=== PATIENT | female | born 1970 | race Two or more races ===

== ENCOUNTER → 2020-01-17 13:41 | Outpatient (BNVA) | payer MEDICAID, SELFPAY | PROVIDERS: PCP Nurse Practitioner Family; Referring Provider Nurse Practitioner Family; Visit Provider Internal Medicine Cardiovascular Disease | DX: I48.0 Paroxysmal atrial fibrillation (principal); I10 Essential (primary) hypertension; G47.33 Obstructive sleep apnea (adult) (pediatric); Z79.899 Other long term (current) drug therapy; Z99.89 Dependence on other enabling machines and devices | CPT/HCPCS: 93005; 99212 ==

== ENCOUNTER → 2020-07-09 13:16 | Outpatient (BNVA) | payer MEDICAID, SELFPAY | PROVIDERS: PCP Nurse Practitioner Family; Referring Provider Nurse Practitioner Family; Visit Provider Internal Medicine Cardiovascular Disease | DX: I48.0 Paroxysmal atrial fibrillation (principal); I10 Essential (primary) hypertension | CPT/HCPCS: 93005; 99212 ==

== ENCOUNTER 2020-08-21 13:07 | Emergency (ER) | payer MEDICAID, SELFPAY ==
--- NOTE | ~2020-08-21 | XR_ITS ---
EXAMINATION: XR CHEST CLINICAL INFORMATION: Chest pressure COMPARISON: Chest radiographs 11/22/2019, 07/22/2019 TECHNIQUE: Frontal view of the chest was obtained. FINDINGS: The lungs are clear. There is no hyperinflation, pneumothorax, pleural reaction, or effusion. No airspace consolidation or groundglass opacity. The heart is normal in size. The hilar and mediastinal contours and visualized bony structures are unremarkable. XR/XR chest 1V IMPRESSION: Unremarkable examination.
[2020-08-21 13:20] VITALS: BP 144/78; PULSE 87; RESP 17; TEMP 36.7; O2SAT 97; BMI 36.6
--- NOTE | 2020-08-21 13:25 | ECG_ITS ---
Test Reason : CP Blood Pressure : / mmHG Vent. Rate : 071 BPM Atrial Rate : 071 BPM P-R Int : 170 ms QRS Dur : 088 ms QT Int : 394 ms P-R-T Axes : 049 014 018 degrees QTc Int : 428 ms Normal sinus rhythm Normal ECG When compared with ECG of 22-NOV-2019 16:32, No significant change was found Referred By: Generic ED Physician Electronically Signed By:Juvencio Peck
[2020-08-21 15:03] LABS: MANUAL DIFF FLAG NO
[2020-08-21 15:06] LABS: Basophils Percent Auto 0.2 % (0-2); Eosinophils Absolute Auto 0.6 X10*3/uL (0.0-0.4); Hematocrit 36.9 % (37-47); Hemoglobin 12.3 g/dl (12.0-16.0); Imm Gran Abs Auto 0.03 X10*3/uL (0.00-0.03); Imm Gran Pct Auto 0.3 % (0.0-0.4); Lymphocytes Absolute Auto 1.5 X10*3/uL (1.2-4.9); Lymphocytes Percent Auto 15.6 % (20-40); Mean Corpuscular HGB Conc 33.3 g/dl (31.0-35.0); Mean Corpuscular Hemoglobin 31.1 pg (27.0-33.0); Mean Corpuscular Volume 93.4 fL (80-98); Mean Platelet Volume 9.1 fL (9.4-12.3); Monocytes Absolute Auto 0.5 X10*3/uL (0.1-1.2); Monocytes Percent Auto 5.1 % (2-11); Neutrophils Absolute Auto 6.8 X10*3/uL (2.0-8.3); Neutrophils Percent Auto 72.8 % (45-73); Platelet Count 209 X10*3/uL (160-400); Red Blood Count 3.95 X10*6/uL (4.20-5.50); Red Cell Distribution Width 12.3 % (11.0-16.0); White Blood Count 9.4 X10*3/uL (4.8-10.8)
[2020-08-21 15:28] LABS: Anion Gap 12 (12-20); Blood Urea Nitrogen 12 mg/dL (9-16); Calcium 9.8 mg/dL (8.4-10.2); Carbon Dioxide 29 mmol/L (22-29); Chloride 107 mmol/L (96-108); Creatinine Clr Calc Pharmacy 101.8; Estimated Glomerular Filt Rate > 60; Glucose Random 129 mg/dL (60-115); Potassium 3.6 mmol/L (3.3-5.1); Sodium 144 mmol/L (135-145)
[2020-08-21 15:33] LABS: Troponin-I High Sensitivity < 3.5 ng/L (<3.5-17.0)
[2020-08-21 16:59] VITALS: BP 148/85; PULSE 74; RESP 16; TEMP 36.7; O2SAT 99
--- NOTE | 2020-08-21 17:55 | ED_ITS ---
HPI - Chest Pain General Chief Complaint: Chest Pain Stated Complaint: severe chest pain Time Seen by Provider: 08/21/20 17:21 Source: patient and translator and interpreter Mode of arrival: ambulatory Limitations: language barrier History of Present Illness HPI narrative: 50 yo female with past medical history of afib, HTN, FAMILAI, ICH so not on xarelto currently here with complaints of Chest tightness, weakness, lightheaded at times, sensation of need to urinate and move her bowels, tingling in the arms/legs for years but today tells me that the symptoms have continued and she became frustrated and so she decided to come to the emergency department. She does not feel like they are worse. She denies any recent changes in her medications. She denies any shortness of breath, cough, leg swelling or pain, fevers, chills. Related Data Home Medications Medication Instructions Recorded Confirmed labetalol 100 mg tablet 100 mg PO BID 01/17/20 07/09/20 simvastatin 20 mg tablet 20 mg PO BEDTIME 01/17/20 07/09/20 sumatriptan succinate 25 mg tablet 25 mg PO Q2-4H PRN 01/17/20 07/09/20 cetirizine 10 mg tablet 10 mg PO DAILY PRN 07/09/20 07/09/20 cholecalciferol (vitamin D3) 25 25 mcg PO DAILY 07/09/20 07/09/20 mcg (1,000 unit) capsule hydrochlorothiazide 12.5 mg tablet 12.5 mg PO DAILY 07/09/20 07/09/20 labetalol 100 mg tablet 100 mg PO BID 07/09/20 07/09/20 Previous Rx's Medication Instructions Recorded flecainide 50 mg tablet 50 mg PO Q12H #60 tab 07/15/20 Allergies Allergy/AdvReac Type Severity Reaction Status Date / Time lisinopril [LISINOPRIL] Allergy Intermediate Palpitation Unverified 08/21/20 13:19 s NSAIDS Allergy Intermediate Hypertensio Uncoded 08/21/20 13:19 n Review of Systems Review of Systems: Yes all other systems are reviewed and are negative Constitutional: Constitutional: Reports no additional constitutional complaints, Denies body ache(s), Denies chills, Denies fever(s), Denies headache(s) and Reports weakness Eyes: Eyes: Reports no additional eye complaints and Denies change in vision ENT: Reports system reviewed and no additional complaints, except as documented, Denies dizziness, Denies headache(s), Denies nasal congestion, Denies nasal discharge and Denies neck pain Cardiovascular: Cardiovascular: Reports no additional cardiovascular complaints, Reports chest pain, Denies leg edema, Reports lightheadedness and Denies dyspnea Respiratory: Respiratory: Reports no additional respiratory complaints, Denies cough and Denies dyspnea Gastrointestinal: Gastrointestinal: Reports no additional gastrointestinal complaints, Denies abdominal pain, Denies diarrhea, Denies nausea and Denies vomiting Genitourinary: Genitourinary: Reports no additional female genitourinary complaints and Denies urinary incontinence Musculoskeletal: Musculoskeletal: Reports no additional musculoskeletal com plaints, Denies back pain, Denies arthralgias, Denies joint swelling, Denies neck pain, Denies numbness and Denies tingling Integumentary/Breasts: Skin/Breast: Reports system reviewed and no additional complaints, except as docu and Denies rash Neurologic: Reports system reviewed and no additional complaints, except as documented, Denies Abnormal speech present, Denies dizziness, Denies headache(s), Denies numbness, Denies tingling and Reports weakness PMFSH Past Medical History Attestation statement: The following information was validated with the patient. Source: old records reviewed and nursing notes reviewed Medical History HTN (hypertension) Intracranial hemorrhage FAMILIA (obstructive sleep apnea) Paroxysmal atrial fibrillation Surgical History H/O sinus surgery Family History Family History Father No problems noted. Mother HTN (hypertension) Social History Social History Advance Directives: Yes Advance Directives Information Provided: Yes Advance Directives on File: No Patient : No Physical Exam Vital Signs: Vital Signs: Last Vital Signs Temp 98.1 F 08/21/20 16:59 Pulse 74 08/21/20 16:59 Resp 16 08/21/20 16:59 BP 148/85 H 08/21/20 16:59 Pulse Ox 99 08/21/20 16:59 Body Mass Index 36.6 Const: General: cooperative, healthy appearing, comfortable and no acute distress Orientation/consciousness: patient oriented x3 Limitations: no limitations HENMT: Head: Yes normal to inspection Ears: hearing grossly normal bilaterally General nose exam: Normal external nose present Face and sinus: Yes normal facial exam Mouth: Normal oral and palatal mucosa present Throat: Yes posterior oropharynx normal Eyes: General: appearance normal, both eyes and all related structures Pupils: Equal, round and reactive pupils present Neck: Neck: Yes normal visual inspection Chest: Chest palpation & inspection: normal inspection of the chest Resp: Effort & Inspection: normal respiratory effort Auscultation: clear to auscultation bilaterally Cardio: Rate: regular rate Rhythm: regular rhythm Peripheral pulses: Per ipheral pulses 2+ throughout GI: Inspection: Yes normal to inspection Palpation (GI): Soft to palpation and nontender Auscultation: normal bowel sounds Back/Spine/Pelvis: Thoracic/Lumbar Spine: thoracic and lumbar spine normal to inspection Skin: General skin exam: no rashes or lesions noted Neuro: General: patient oriented x3, no focal motor deficits and normal sensation to monofilament Cranial nerves: Yes Equal, round and reactive pupils present Cognition (Neuro): normal cognition Speech: No Abnormal speech present Gait exam (Neuro): Normal gait present Motor exam (neuro): 5/5 motor strength present throughout Extrem: General: Yes normal to inspection, Yes no pedal edema and Yes no calf tenderness Course Course Course Narrative: 50-year-old female here with a constellation of symptoms which she tells me have been going on for years but are quite persistent and she became frustrated due to the symptoms today and which prompted her emergency room visit. She does not feel like the symptoms are worse. She is hemodynamically stable. Her exam is benign. Her x-ray, EKG and labs are all unremarkable. ?anxiety. She tells me she does have a diagnosis but currently does not taking medication because she feels like she is overwhelmed with the amount of medication she takes currently. She does not have a therapist or psychiatrist. I asked her if she was interested in this and she told me at this point she is not and will follow up with her primary care doctor. Reviewed this with the patient reviewed worrisome signs and symptoms when to return to the emergency department. Comfortable discharge home. MDM - Chest Pain MDM Narrative Medical decision making narrative: Less likely ACS with unremarkable EKG, troponin with symptoms for years Medical Records Data Attestation: I reviewed the patient's medical records. Lab Data Attestation: I reviewed the patient's lab results. Result diagrams: 08/21/20 14:57 08/21/20 14:57 Labs: Lab Results 08/21/20 08/21/20 08/21/20 Range/Units 14:57 14:57 14:57 WBC 9.4 (4.8-10.8) X10*3/uL RBC 3.95 L (4.20-5.50) X10*6/uL Hgb 12.3 (12.0-16.0) g/dl Hct 36.9 L (37-47) % MCV 93.4 (80-98) fL MCH 31.1 (27.0-33.0) pg MCHC 33.3 (31.0-35.0) g/dl RDW 12.3 (11.0-16.0) % Plt Count 209 (160-400) X10*3/uL MPV 9.1 L (9.4-12.3) fL Immature Gran % (Auto) 0.3 (0.0-0.4) % Neut % (Auto) 72.8 (45-73) % Lymph % (Auto) 15.6 L (20-40) % Cascade % (Auto) 5.1 (2-11) % Eos % (Auto) 6.0 H (0-4) % Baso % (Auto) 0.2 (0-2) % Lymph # (Auto) 1.5 (1.2-4.9) X10*3/uL [place] # (Auto) 0.5 (0.1-1.2) X10*3/uL Eos # (Auto) 0.6 H (0.0-0.4) X10*3/uL Baso # (Auto) 0.0 (0.0-0.2) X10*3/uL Abs Immat Gran (auto) 0.03 (0.00-0.03) X10*3/uL Absolute Neuts (auto) 6.8 (2.0-8.3) X10*3/uL Absolute Nucleated RBC 0.000 (0.0-0.012) X10*3/uL Nucleated RBC % (auto) 0.0 (0.0-0.2) /100WBC Sodium 144 (135-145) mmol/L Potassium 3.6 (3.3-5.1) mmol/L Chloride 107 (96-108) mmol/L Carbon Dioxide 29 (22-29) mmol/L Anion Gap 12 (12-20) BUN 12 (9-16) mg/dL Creatinine 0.79 (0.5-1.4) mg/dL Estim Creat Clear Calc 101.8 Estimated GFR > 60 Random Glucose 129 H (60-115) mg/dL Calcium 9.8 (8.4-10.2) mg/dL Troponin I High Sens < 3.5 (<3.5-17.0) ng/L Imaging Data Chest x-ray: Attestation: I personally reviewed and interpreted this imaging study as follows: Radiologist's impression: [address] [id number] ReportSigned Patient: Elana CurryMR#: [id number]: 1970Acct:[id number]/Sex: 50 / FADM Date: 08/21/20Loc: HO.EDAttending Dr: Ordering Physician: Generic ED Physician Date of Service: 08/21/20 Procedure(s): XR chest 1V Accession Number(s): [id number] cc: Generic ED Physician~ EXAMINATION: XR CHEST CLINICAL INFORMATION: Chest pressure COMPARISON: Chest radiographs 11/22/2019, 07/22/2019 TECHNIQUE: Frontal view of the chest was obtained. FINDINGS: The lungs are clear. There is no hyperinflation, pneumothorax, pleural reaction, or effusion. No airspace consolidation or groundglass opacity. The heart is normal in size. The hilar and mediastinal contours and visualized bony structures are unremarkable. XR/XR chest 1V IMPRESSION: Unremarkable examination. ECG Data ECG #1: Attestation: I personally reviewed and interpreted this ECG as follows: ECG interpretation date: 08/21/20 ECG interpretation time: 13:25 Interpretation: Normal sinus rhythm Normal ECG When compared with ECG of 22-NOV-2019 16:32, No significant change was found Discharge Plan Discharge Clinical Impression: Atypical chest pain, Anxiety Patient Disposition: Home, Self-Care Instructions: Anxiety (ED), Chest Wall Pain (ED) Additional Instructions: Your EKG, blood work and chest x-ray all looked normal Follow-up with your manager web and PCP Prescriptions: No Action flecainide 50 mg tablet 50 mg PO Q12H Qty: 60 RF: 4 labetalol 100 mg tablet 100 mg PO BID RF: 0 cetirizine 10 mg tablet 10 mg PO DAILY PRNRF: 0 hydrochlorothiazide 12.5 mg tablet 12.5 mg PO DAILY RF: 0 cholecalciferol (vitamin D3) 25 mcg (1,000 unit) capsule 25 mcg PO DAILY RF: 0 labetalol 100 mg tablet 100 mg PO BID RF: 0 simvastatin 20 mg tablet 20 mg PO BEDTIME RF: 0 sumatriptan succinate 25 mg tablet 25 mg PO Q2-4H PRNRF: 0 Referrals: Charly Law NP [Primary Care Provider] - 2 days Interventions: ED Discharge Assessment Last Done: 08/21/20 17:59 Discharge Date/Time: 08/21/20 18:00
== END 2020-08-21 18:00 | disposition home or self-care (01) ==
PROVIDERS: Emergency Provider Emergency Medicine; PCP Nurse Practitioner Family
DX: R07.89 Other chest pain (principal); F41.9 Anxiety disorder, unspecified; I10 Essential (primary) hypertension; I48.0 Paroxysmal atrial fibrillation; Z79.899 Other long term (current) drug therapy
CPT/HCPCS: 36415; 71045; 80048; 84484; 85025; 93005; 99283; 99284

== ENCOUNTER 2020-09-03 08:49 | Outpatient (REF) | payer MEDICAID, SELFPAY ==
--- NOTE | ~2020-09-03 | XR_ITS ---
EXAMINATION: XR KNEE, LEFT CLINICAL INFORMATION: Left knee pain for 3 months. COMPARISON: X-rays of the left knee June 2014 TECHNIQUE: Four views of the left knee. FINDINGS: Minimal marginal osteophytes about the medial compartment and patellofemoral compartment without joint space narrowing and unchanged. Lateral compartment normal. No effusion. Surrounding bone and soft tissues unremarkable. XR/XR knee LT 4V IMPRESSION: Minimal arthrosis of the left knee unchanged
== END 2020-09-03 08:50 | disposition home or self-care (01) ==
LOC: HO.XRAY 08:49
PROVIDERS: Visit Provider Nurse Practitioner Family
DX: M25.562 Pain in left knee (principal)
CPT/HCPCS: 73564

== ENCOUNTER → 2020-12-25 09:38 | Outpatient (BNVA) | payer MEDICAID, SELFPAY | PROVIDERS: Referring Provider Registered Nurse Community Health; Visit Provider Internal Medicine Cardiovascular Disease | DX: I48.0 Paroxysmal atrial fibrillation (principal); I10 Essential (primary) hypertension; R07.89 Other chest pain | CPT/HCPCS: 93005; 99212 ==

== ENCOUNTER → 2020-12-31 10:21 | Outpatient (REF) | payer MEDICAID, SELFPAY ==
--- NOTE | 2020-12-31 11:46 | CA_ITS ---
Acquisition Time: 2020-12-31 10:38:12 Total Exercise Time: 00:07:53 Test Indications: Chest Pain Medications: ASA CLOPIDOGREL FLECAINIDE HCTZ LABETOLOL LOSARTAN SIMVASTATIN Protocol: MAYA Max HR: 148 BPM 86% of Pred: 172 BPM Max BP: 122/080 mmHG Max Work Load: 9.9 METS Exercise stress test with exercise 7 min 53 sec of Maya protocol, with mild sob, no chest discomfort, without arrythmia, with normotensive response to exercise, with downsloping ST inferiorly with borderline depression with gradual improvement in recovery.Test reviewed with Dr Osullivan. Will order stress echo for further evaluation. Referred By: Bartolo Osullivan Overread By: IRAJ GAGE
== END ==
LOC: HO.CARD 10:21
PROVIDERS: PCP Registered Nurse Community Health; Visit Provider Internal Medicine Cardiovascular Disease
DX: R07.89 Other chest pain (principal)
CPT/HCPCS: 93017

== ENCOUNTER → 2021-01-07 10:28 | Outpatient (REF) | payer MEDICAID, SELFPAY ==
--- NOTE | 2021-01-07 10:47 | CA_ITS ---
Acquisition Time: 2021-01-07 11:00:10 Total Exercise Time: 00:08:07 Test Indications: CP Medications: SEE CHART Protocol: MAYA Max HR: 162 BPM 94% of Pred: 172 BPM Max BP: 144/080 mmHG Max Work Load: 10.1 METS Exercise stress test with exercise 8 min 7 sec of Maya protocol, achieing 94% MPHR, without anginal symptoms, without arrythmia, with normotensive response to exercise, with borderline EKG changes inferiorly and V5-V6 in setting of baseline ST abnormalities in those leads: equivocal for ischemia. Echo images obtained by tech at rest and immediately post peak exercise. Definity contrast used. Test reviewed with Dr Draper. Referred By: Terri Gudino Overread By: TERRI GUDINO
== END ==
LOC: HO.CARD 10:28
PROVIDERS: Visit Provider Nurse Practitioner Family
DX: R94.39 Abnormal result of other cardiovascular function study (principal)
CPT/HCPCS: 93350; Q9957

== ENCOUNTER → 2021-01-27 12:32 | Outpatient (REF) | payer MEDICAID, SELFPAY ==
--- NOTE | 2021-01-27 12:36 | CA_ITS ---
Transthoracic Echocardiogram Patient (Last, First, Middle): Elana Curry, Gender: Female Date of : 1970 Age: 50 Procedure Date: 01/27/2021 Procedure Type: Transthoracic Echocardiogram Location: OP Height: 162.56 cm Weight: 90.72 kg BSA: 1.96 m2 Heart Rate: bpm BP: 122 / 76 mmHg Telecom Coordinator: BERHANE/KENNY Referring MD: Bartolo Osullivan MD Symptoms: I48.0 - Paroxysmal atrial fibrillation Study Quality: Good ECG Rhythm: Sinus Conclusions: - The left ventricular systolic function is normal. The visually estimated ejection fraction is between 55-60%. - No obvious valvular pathology seen on this study. Findings Left Ventricle Normal left ventricular cavity size. There is normal left ventricular wall thickness. The left ventricular systolic function is normal. The visually estimated ejection fraction is between 55-60%. There is no evidence of regional wall motion abnormalities. Diastolic function is normal for age. Right Ventricle Normal right ventricular cavity size and systolic function. Atria The left atrium is mildly dilated. The right atrium is normal in size. Aortic Valve There is a normal trileaflet aortic valve. There is no aortic valve stenosis. There is no aortic valve regurgitation. Mitral Valve The mitral valve appears normal. There is trace mitral valve regurgitation. There is no mitral valve stenosis. Pulmonic Valve The pulmonic valve was not well visualized. Tricuspid Valve Normal tricuspid valve structure. There is trace tricuspid valve regurgitation. The pulmonary artery systolic pressure is normal. Great Vessels The asc aorta is normal in size. Venous The inferior vena cava is normal in size and collapses greater than 50% with inspiration. Pericardium/Pleural There is no evidence of pericardial effusion. Prior Study Comparison No significant change compared to prior study dated: 01/06/2018. Recommendations, Care & Conclusions No obvious valvular pathology seen on this study. Measurements 2D Linear Measurements IVSd: 1.06 0.6-0.9/0.6-1.0 cm LVIDd: 4.73 3.9-5.3/4.2-5.9 cm LVIDd Index: 2.41 2.4-3.2/2.2-3.1 cm/m2 LVIDs: 3.28 2.0-3.6 cm LVPWd: 0.95 0.7-1.1 cm Ao Root: 3.30 2.1-3.5 cm LA Diam: 3.90 2.7-3.8/3.0-4.0 cm LAIDs Index: 1.99 1.5-2.3 cm/m2 LV Mass: 208.94 67-162/88-224 g LV Mass Index: 106.60 43-95/49-115 g/m2 LVOT Diam: 2.20 3.0+(-)1.3 cm Mitral Valve MV Pk E: 0.83 MV PK A: 0.75 MV Decel Time: 246.00 E/A: 1.10 E'Lateral: 12.00 E'Medial: 9.36 E/E' Med: 8.80 E/E' Lat: 6.90 PHT: 72.00 MVA PHT: 3.06 Decel Coamo: 3.36 Aortic Valve AoV Pk Aldo: 1.42 AoV Mn Aldo: 1.06 AoV VTI: 0.34 AoV Pk Grad: 8.00 Aov Mn Grad: 5.00 CUATE Cont.VTI: 3.14 LVOT LVOT Pk Aldo: 1.26 LVOT Mn Aldo: 0.83 LVOT VTI: 0.28 LVOT Pk Grad: 6.00 LVOT Mn Grad: 3.00 LVOT Diam: 2.20 LVOT Area: 3.80 Diastolic Function MV Pk E: 0.83 MV Pk A: 0.75 E/A: 1.10 E'Medial: 9.36 E/E' Med: 8.80 E' Laterial: 12.00 E/E' Lat: 6.90 Right Ventricle TAPSE (mm): 26.70 TVS' Aldo: 11.60 Tricuspid Valve RA Press: 3.00 Great Vessels Aorta Ao Root-2D: 3.30 2.0-3.7 cm Ao Asc: 3.40 2.1-3.4 cm Ao Arch: 2.60 Updated in Other Vendor System with Status of Final Morteza Draper MD electronically signed on 01/28/2021 1:49:45 PM with status of Final
== END ==
LOC: HO.CARD 12:32
PROVIDERS: Visit Provider Internal Medicine Cardiovascular Disease
DX: I48.0 Paroxysmal atrial fibrillation (principal)
CPT/HCPCS: 93306

== ENCOUNTER → 2021-01-28 08:29 | Outpatient (BNVA) | payer MEDICAID, SELFPAY | PROVIDERS: PCP Registered Nurse Community Health; Referring Provider Registered Nurse Community Health; Visit Provider Nurse Practitioner Family | DX: G47.33 Obstructive sleep apnea (adult) (pediatric) (principal) | CPT/HCPCS: 99202 ==

== ENCOUNTER 2021-02-12 09:16 | Outpatient (REF) | payer MEDICAID, SELFPAY ==
--- NOTE | ~2021-02-12 | MM_ITS ---
EXAMINATION: MM SCREENING DIGITAL BREAST TOMOSYNTHESIS, BILATERAL CLINICAL INFORMATION: Screening. Asymptomatic. The lifetime risk of breast cancer based on the Tyrer-Cuzick Model is 10%. COMPARISON: Mammography: 02/24/2019, 12/22/2017, 06/05/2016; ultrasound right breast for 06/05/2016 TECHNIQUE: Digital breast tomosynthesis is performed in both the craniocaudal and mediolateral oblique views along with computer-aided detection (CAD). Synthesized 2D images are generated from the tomosynthesis. FINDINGS: The breasts are heterogeneously dense, which may obscure small masses (ACR BI-RADS breast composition Category c). There are no significant masses, abnormal calcifications, or other abnormalities. Small cyst posterior upper outer right breast decreased in size since 2017. MM/MM tomosynthesis screening BI IMPRESSION: No mammographic evidence of malignancy. ASSESSMENT: BI-RADS 2: Benign RECOMMENDATION: Routine annual mammography screening. This patient's information was entered into a reminder system with a target due date for their next mammogram.
== END 2021-02-12 09:17 | disposition home or self-care (01) ==
LOC: HO.MAMMO 09:16
PROVIDERS: Visit Provider Nurse Practitioner Family
DX: Z12.31 Encounter for screening mammogram for malignant neoplasm of breast (principal)
CPT/HCPCS: 77063; 77067

== ENCOUNTER 2021-02-13 06:44 | Emergency (ER) | payer MEDICAID, SELFPAY ==
--- NOTE | 2021-02-13 07:15 | ECG_ITS ---
Test Reason : pain Blood Pressure : / mmHG Vent. Rate : 074 BPM Atrial Rate : 075 BPM P-R Int : 176 ms QRS Dur : 090 ms QT Int : 388 ms P-R-T Axes : 047 015 019 degrees QTc Int : 430 ms Normal sinus rhythm Nonspecific T wave abnormality Abnormal ECG When compared with ECG of 21-AUG-2020 14:51, No significant change was found Referred By: Janet Rodriguez Electronically Signed By:CONNIE ZHENG MD
--- NOTE | 2021-02-13 07:16 | ED.SKABFB ---
HPI - Skin/Abscess/Foreign Bdy General Chief complaint: Skin/Abscess/Foreign Body Stated complaint: rash shingles Time Seen by Provider: 02/13/21 07:15 Source: patient and physical science teacher Mode of arrival: ambulatory Limitations: no limitations History of Present Illness HPI narrative: burning pain at site of her L chest wall shingles which she didn't take the meds for due to she was worred about side effects - rash started Wednesday - she has a watchman wants to make sure the burning isn't her heart because she has a watchman in place complaint: rash Onset (ago): day(s) (7) Tetanus up to date: yes Location: chest (left sided into back) Severity: moderate Quality: burning Pain Consistency: constant Relieving factors: none Exacerbating factors: palpation Context: other (dx with shingles never took the medication though the rash is improving) Associated symptoms: denies other symptoms Treatments prior to arrival: OTC topical medication Related Data Home Medications Medication Instructions Recorded Confirmed simvastatin 20 mg tablet 20 mg PO BEDTIME 01/17/20 01/28/21 sumatriptan succinate 25 mg tablet 25 mg PO Q2-4H PRN 01/17/20 01/28/21 cetirizine 10 mg tablet 10 mg PO DAILY PRN 07/09/20 01/28/21 cholecalciferol (vitamin D3) 25 25 mcg PO DAILY 07/09/20 01/28/21 mcg (1,000 unit) capsule hydrochlorothiazide 12.5 mg tablet 12.5 mg PO DAILY 07/09/20 01/28/21 labetalol 100 mg tablet 100 mg PO BID 07/09/20 01/28/21 aspirin 81 mg tablet,delayed 0 mg PO 12/25/20 01/28/21 release clopidogrel 75 mg tablet 75 mg PO DAILY 12/25/20 01/28/21 losartan 50 mg tablet 50 mg PO BID 12/25/20 01/28/21 Previous Rx's Medication Instructions Recorded flecainide 50 mg tablet 50 mg PO Q12H #60 tab 01/17/21 Allergies Allergy/AdvReac Type Severity Reaction Status Date / Time lisinopril [LISINOPRIL] Allergy Intermediate Palpitation Verified 01/28/21 08:44 s NSAIDS Allergy Intermediate Hypertensio Uncoded 01/28/21 08:44 n Review of Systems Review of Systems: Constitutional : No Fever, No Chills ENT/Mouth : No sore throat, No Rhinorrhea Eyes: No Eye Pain, No Swelling, No Redness Cardiovascular : No Chest Pain, No SOB Respiratory : No Cough, No Sputum Gastrointestinal : No Nausea, No Vomiting, No Diarrhea, No abdominal Pain Genitourinary : No Dysuria, No Hematuria Musculoskeletal : No joint pain, No Myalgias, No Joint Swelling Skin : No Skin Lesions, positive skin rash Neuro : No Weakness, No Numbness, No Headache Psych : No Anxiety, No Depression Heme/Lymph: No Bruising, No Bleeding,No Lymphadenopathy Endocrine : No Polyuria, No Polydipsia All other systems reviewed and are negative [facility] Past Medical History Attestation statement: The following information was validated with the patient. Medical History HTN (hypertension) Intracranial hemorrhage FAMILIA (obstructive sleep apnea) Paroxysmal atrial fibrillation Presence of Watchman left atrial appendage closure device Surgical History H/O sinus surgery History of brain surgery Family History Family History Father No problems noted. Mother HTN (hypertension) Social History Social History Alcohol intake: never Patient Tobacco Use Status: Never used Tobacco Advance Directives: No Advance Directives Information Provided: No Physical Exam Vital Signs: Vital Signs: Last Vital Signs Temp 98.3 F 02/13/21 07:27 Pulse 73 02/13/21 07:27 Resp 16 02/13/21 07:27 BP 108/55 L 02/13/21 07:27 Pulse Ox 97 02/13/21 07:27 BMI result Body Mass Index 33.3 Appearance: Alert. Oriented X3. No acute distress. Eyes: Pupils equal, round and reactive to light. ENT: Pharynx normal. Neck: Normal inspection. Neck supple. CVS: Normal heart rate and rhythm. Pulses normal. L chest wall vesicles noted in dermatomal pattern under left breast to back - no signs of secondary cellulitis Respiratory: No respiratory distress. Breath sounds normal. Abdomen: Soft and nontender. Skin: Skin warm and dry. Normal skin color. Normal skin turgor. Extremities: No lower extremity edema. No calf ttp Neuro: Oriented X 3. No motor deficit. No sensory deficit. MDM - Skin/Abscess/Foreign Bdy MDM Narrative Medical decision making narrative: 50 yo female with hx of PAF, HTN, FAMILIA here with known shingles she is concerned because it swanson so much. She has had it for 7 days but never took the medications. She didn't want to have the side effects. It is resolving at this time. She wasn't aware it could burn so much so she is requesting an ECG. Her pain is not cardiac related to the rash. Will obtain ECG and DC her home - discussed expectant course of the rash. ECG Data Attestation: I personally reviewed and interpreted this ECG as follows: ECG interpretation date: 02/13/21 ECG interpretation time: 07:39 Interpretation: Rate: 74 Rhythm: NSR [place]: normal Normal P waves. Normal [place]. Normal QRS complex. ST T wave : nonspecific, no GAY qTC: normal prior studies: no sig change from 2019 The study has been interpreted contemporaneously by me. . Discharge Plan Discharge Clinical Impression: Shingles Patient Disposition: Home, Self-Care Instructions: Shingles (ED) Additional Instructions: return to ED for any worsening symptoms or concerns Prescriptions: No Action flecainide 50 mg tablet 50 mg PO Q12H Qty: 60 RF: 4 labetalol 100 mg tablet 100 mg PO BID RF: 0 cetirizine 10 mg tablet 10 mg PO DAILY PRNRF: 0 hydrochlorothiazide 12.5 mg tablet 12.5 mg PO DAILY RF: 0 cholecalciferol (vitamin D3) 25 mcg (1,000 unit) capsule 25 mcg PO DAILY RF: 0 simvastatin 20 mg tablet 20 mg PO BEDTIME RF: 0 sumatriptan succinate 25 mg tablet 25 mg PO Q2-4H PRNRF: 0 losartan 50 mg tablet 50 mg PO BID RF: 0 clopidogrel 75 mg tablet 75 mg PO DAILY RF: 0 aspirin 81 mg tablet,delayed release (DR/EC) 0 mg PO RF: 0 Referrals: Jessica Sharma PATCHER [Primary Care Provider] - 5 days (as needed) Print Language: Yemeni
[2021-02-13 07:27] VITALS: BP 108/55; PULSE 73; RESP 16; TEMP 36.8; O2SAT 97; BMI 33.3
--- NOTE | 2021-02-13 07:42 | PC.NURSE ---
pt alert and oriented, vss. pt reports 10/10 painful rash on her left upper back. she states the rash started on Wednesday and got painful over the past few days. pt denies exposure to anything that may have caused an allergic reaction. no sob/n/v/abdominal. will continue to monitor.
--- NOTE | 2021-02-13 08:11 | PC.NURSE ---
pt medically cleared for discharge. discharge summary given and explained to pt . pt encouraged to resume meds prescribed by her PCP. pt alert and oriented vss.
== END 2021-02-13 08:08 | disposition home or self-care (01) ==
PROVIDERS: Emergency Provider Emergency Medicine; PCP Registered Nurse Community Health
DX: B02.9 Zoster without complications (principal); I10 Essential (primary) hypertension; I48.0 Paroxysmal atrial fibrillation; Z79.82 Long term (current) use of aspirin
CPT/HCPCS: 93005; 99283; 99284

== ENCOUNTER → 2021-06-24 10:07 | Outpatient (BNVA) | payer MEDICAID, SELFPAY | PROVIDERS: PCP Registered Nurse Community Health; Referring Provider Registered Nurse Community Health; Visit Provider Internal Medicine Cardiovascular Disease | DX: I48.0 Paroxysmal atrial fibrillation (principal); I10 Essential (primary) hypertension; Z79.82 Long term (current) use of aspirin; Z79.899 Other long term (current) drug therapy | CPT/HCPCS: 93005; 99212 ==

== ENCOUNTER 2021-07-24 09:45 | Outpatient (REF) | payer MEDICAID, SELFPAY ==
--- NOTE | ~2021-07-24 | XR_ITS ---
EXAMINATION: XR RIBS, LEFT CLINICAL INFORMATION: Pleurodynia COMPARISON: Chest radiographs 08/21/2020, 11/22/2019 TECHNIQUE: Frontal view of the chest and 3 views of the left ribs are obtained for a total of 4 views. FINDINGS: There is no visible left rib fracture or rib destructive process. The remainder the bony structures are unremarkable. There is no pneumothorax or pleural reaction. No airspace consolidation or effusion. The costophrenic sulci are clear. The heart is normal in size. There are artifacts overlying lung apices from the patient's hair. There is a faint segovia-shaped artifact overlying the upper left heart on frontal view, not seen on oblique projection presumably another artifact. XR/XR ribs LT min 3V w CXR1V IMPRESSION: -No visible rib fracture or rib destructive process. -No pneumothorax, pleural reaction, or effusion.
== END 2021-07-24 09:46 | disposition home or self-care (01) ==
LOC: HO.XRAY 09:45
PROVIDERS: Absent Provider Registered Nurse Community Health; PCP Registered Nurse Community Health; Visit Provider Emergency Medicine
DX: R07.81 Pleurodynia (principal)
CPT/HCPCS: 71101

== ENCOUNTER → 2021-12-22 09:46 | Outpatient (BNVA) | payer MEDICAID, SELFPAY | PROVIDERS: PCP Registered Nurse Community Health; Referring Provider Registered Nurse Community Health; Visit Provider Internal Medicine Cardiovascular Disease | DX: Z79.899 Other long term (current) drug therapy (principal) | CPT/HCPCS: 93005 ==

== ENCOUNTER → 2022-06-25 10:13 | Outpatient (BNVA) | payer MEDICAID, SELFPAY | PROVIDERS: Referring Provider Registered Nurse Community Health; Visit Provider Internal Medicine Cardiovascular Disease | DX: I48.0 Paroxysmal atrial fibrillation (principal); I10 Essential (primary) hypertension | CPT/HCPCS: 93005; 99212 ==

== ENCOUNTER 2022-12-24 10:27 | Outpatient (REF) | payer MEDICAID, SELFPAY ==
[2022-12-24 11:02] LABS: MANUAL DIFF FLAG NO
[2022-12-24 11:54] LABS: Basophils Absolute Auto 0.1 X10*3/uL (0.0-0.2); Basophils Percent Auto 0.6 % (0-2); Eosinophils Absolute Auto 0.7 X10*3/uL (0.0-0.4); Eosinophils Percent Auto 8.1 % (0-4); Hematocrit 38.1 % (37.0-47.0); Hemoglobin 12.2 g/dl (12.0-16.0); Imm Gran Abs Auto 0.03 X10*3/uL (0.00-0.03); Imm Gran Pct Auto 0.4 % (0.0-0.4); Lymphocytes Absolute Auto 2.3 X10*3/uL (1.2-4.9); Lymphocytes Percent Auto 27.9 % (20-40); Mean Corpuscular Hemoglobin 29.9 pg (27.0-33.0); Mean Corpuscular Volume 93.4 fL (80.0-98.0); Mean Platelet Volume 9.4 fL (9.4-12.3); Monocytes Absolute Auto 0.6 X10*3/uL (0.1-1.2); Monocytes Percent Auto 7.3 % (2-11); Neutrophils Absolute Auto 4.5 x10*3/uL (2.0-8.3); Neutrophils Percent Auto 55.7 % (45-73); Platelet Count 237 X10*3/uL (160-400); Red Blood Count 4.08 X10*6/uL (4.20-5.50); White Blood Count 8.1 X10*3/uL (4.8-10.8)
[2022-12-24 12:00] LABS: Appearance Urine Clear; Color Urine Yellow; Glucose Urine UA Negative (Negative); Leukocyte Esterase Urine Negative (Negative); Nitrite Urine Negative (Negative); PH 5.5 (5.0-9.0); Urine Blood Negative (Negative); Urine Ketones Negative (Negative); Urine Protein Negative (Neg-Trace)
[2022-12-24 12:01] LABS: Estimated Average Glucose 120 mg/dL; Hemoglobin A1c % 5.8 % (<6.0)
[2022-12-24 12:03] LABS: Bacteria Urine Trace (None Seen); Hyaline Casts Urine 0-2 /LPF (0-2); RBC Urine 0-2 /HPF (0-2); Squamous Epithelial Cell Urine 0-2 /HPF (0-2); WBC Urine 0-5 /HPF (0-5)
[2022-12-24 12:27] LABS: Creatinine Urine 95.19 mg/dL; Total Protein Urine Random < 7 mg/dL (<12)
[2022-12-24 12:32] LABS: Anion Gap 12 (12-20); Blood Urea Nitrogen 23 mg/dL (9-16); Carbon Dioxide 28 mmol/L (22-29); Chloride 105 mmol/L (96-108); Estimated Glomerular Filt Rate > 60; Iron 68 mcg/dL (30-160); Percent Iron Saturation 23 % (15-50); Potassium 4.4 mmol/L (3.3-5.1); Sodium 141 mmol/L (135-145); Total Iron Binding Capacity 294 mcg/dL (228-428); Unsaturated Iron Binding 226 ug/dL; Uric Acid 7.2 mg/dL (2.4-5.7)
[2022-12-24 12:48] LABS: Vitamin D 25-OH Total 35.4 ng/mL (>30)
== END 2022-12-24 10:28 | disposition home or self-care (01) ==
LOC: HO.LAB 10:27
PROVIDERS: Absent Provider Physician Assistant; PCP Internal Medicine; Visit Provider Internal Medicine Cardiovascular Disease
DX: N18.1 Chronic kidney disease, stage 1 (principal); I10 Essential (primary) hypertension; N02.8 Recurrent and persistent hematuria with other morphologic changes; I48.0 Paroxysmal atrial fibrillation
CPT/HCPCS: 36415; 80051; 81001; 82306; 82310; 82565; 82570; 83036; 83540; 84156; 84520; 84550; 85025; 93005

== ENCOUNTER 2022-12-24 10:27 | Outpatient (AMB) | payer MEDICAID, SELFPAY ==
--- NOTE | 2022-12-24 10:41 | AM.OFFVISNUR ---
Intake Intake Visit Reasons: ekg Accompanied by: Self / Same As Patient Allergies lisinopril [LISINOPRIL] Allergy (Intermediate, Verified 12/24/22 10:41) Palpitations NSAIDS Allergy (Intermediate, Uncoded 12/24/22 10:41) Hypertension Nursing Note EKG patient on Flecainide 50 MG BID. EKG shows NSR w/ a heart rate of 73 bpm. Patient reports feeling okay no complaints. Office Procedures EKG 20014-[id number], Complete Coding CPT Codes EKG - CPT: 68748-Odzlejccehahkqeco, Complete ([id number])
== END 2022-12-24 10:45 | disposition home or self-care (01) ==
PROVIDERS: Visit Provider Internal Medicine Cardiovascular Disease
DX: I48.0 Paroxysmal atrial fibrillation (principal)
CPT/HCPCS: 93010

== ENCOUNTER 2023-01-01 10:19 | Outpatient (AMB) | payer MEDICAID, SELFPAY ==
--- NOTE | 2023-01-01 10:24 | A.OFFVIS_ITS ---
Intake Vital Signs 01/01/23 10:36 Height 5 ft 4 in Weight 205 lb BMI 35.2 BP 92/68 Blood Pressure Location Lt brachial Position Sitting Pulse 80 Pulse Source Pulse Oximeter Pulse Oximetry (%) 97 Oxygen Delivery Method Room Air Intake Visit Reasons: ENP-FAMILIA/Confirmed Intake Note: NPV for FAMILIA Correction Warden Required: Yes Correction Warden Name: [id number] Allergies lisinopril [LISINOPRIL] Allergy (Intermediate, Verified 01/01/23 10:26) Palpitations NSAIDS Allergy (Intermediate, Uncoded 01/01/23 10:26) Hypertension HPI HPI Comments History of Present Illness Details 52 y/o female patient presents for follo w up of FAMILIA on CPAP. The last vist was 2 years ago. Pt states that she uses CPAP nightly and sleeps well for 6-7 hrs. She reports refreshed in the morning and daytime sleepiness has resolved. Pt had a split night sleep study done last year. The sleep study recommended to try CPAP at [id number]. The CPAP compliance is not available at this time. She was on APAP at [id number]. Pt needs new SD card. Pt reports that she has jerk movement and vivid dream lately. The sleep study shows that REM sleep without atonia. [facility] Medical History (Updated 01/01/23 @ 10:33 by Anabel Joiner CMA) Interatrial cardiac shunt History of cardioversion Pre-diabetes History of subdural hematoma High cholesterol Presence of Watchman left atrial appendage closure device Paroxysmal atrial fibrillation HTN (hypertension) FAMILIA (obstructive sleep apnea) Intracranial hemorrhage Surgical History H/O craniotomy H/O sinus surgery Family History (Updated 01/01/23 @ 10:35 by Anabel Joiner CMA) Father HTN (hypertension) Heart disease Diabetes Mother HTN (hypertension) Diabetes Social History (Updated 01/01/23 @ 10:36 by Anabel Joiner CMA) Alcohol intake: never Patient Tobacco Use Status: Never used Tobacco Review of Systems Const All systems reviewed & are unremarkable except as noted in HPI and below Physical Exam Vital Signs: Last Vital Signs Pulse 80 01/01/23 10:36 BP 92/68 01/01/23 10:36 Pulse Ox 97 01/01/23 10:36 Oxygen Delivery Method Room Air 01/01/23 10:36 BMI result Body Mass Index 35.2 Const General: no acute distress Orientation/consciousness: patient oriented x3 HEENT Other: Mallampati stage- 4 Resp Effort & Inspection: normal respiratory effort and able to speak in complete sentences Auscultation: clear to auscultation bilaterally Cardio Rate: regular rate Rhythm: regular rhythm Neuro General: patient oriented x3 Psych Mental Status: mental status grossly normal Speech and movement: Clear speech present Attitude: cooperative Assessment & Plan Assessment & Plan (1) FAMILIA (obstructive sleep apnea): Code(s): G47.33 - Obstructive sleep apnea (adult) (pediatric) Plan New prescription changing pressure to CPAP at [id number] to J &L, and request to send new SD card. Stressed compliance, use CPAP nightly and more than 4 hrs. Advised patient to try magnesium 400 mg and melatonin 3 mg qHS. Medications: New magnesium oxide 400 mg PO DAILY 30 days 30 tabs 6RF melatonin 3 mg PO BEDTIME 30 days PRN 30 tabs 6RF sleep Coding Level of Care Code Est Pt Level 3 (77791) Diagnoses FAMILIA (obstructive sleep apnea) G47.33
[2023-01-01 10:36] VITALS: BP 92/68; PULSE 80; O2SAT 97; BMI 35.2
== END 2023-01-01 10:53 | disposition home or self-care (01) ==
PROVIDERS: PCP Internal Medicine; Visit Provider Nurse Practitioner Family
DX: G47.33 Obstructive sleep apnea (adult) (pediatric) (principal)
CPT/HCPCS: 99213

== ENCOUNTER → 2023-01-01 10:19 | Outpatient (BNVA) | payer MEDICAID, SELFPAY | PROVIDERS: PCP Internal Medicine; Visit Provider Nurse Practitioner Family | DX: G47.33 Obstructive sleep apnea (adult) (pediatric) (principal) | CPT/HCPCS: 99212 ==

== ENCOUNTER 2023-01-22 10:22 | Outpatient (REF) | payer MEDICAID, SELFPAY ==
--- NOTE | ~2023-01-22 | CT_ITS ---
EXAMINATION: CT HEAD WITHOUT CONTRAST CLINICAL INFORMATION: Headache. COMPARISON: Head CT dated 10/06/2016. TECHNIQUE: Contiguous axial imaging was performed from the skullbase to vertex without intravenous administration of contrast. This CT examination was performed using dose optimization techniques as appropriate, variously including the following: *Automated exposure control *Adjustment of mA and/or kV according to patient size (this includes techniques or standardized protocols for targeted exams where dose is matched to indication/reason for exam; i.e. extremities or head) *Use of iterative reconstruction technique DLP: 713 mGy-cm. FINDINGS: There is no evidence of acute intracranial hemorrhage or territorial infarction. No abnormal mass effect or midline shift is seen. Yip to white matter differentiation is well preserved. No extra-axial fluid collections are identified. Chronic left parietal craniotomy changes noted near the vertex. The ventricles are normal in size. There is no abnormal attenuation within the brain parenchyma. The osseous structures and soft tissues are normal. The mastoid air cells are well aerated. Worsened severe mucosal disease is visible in the paranasal sinuses with mucosal opacification of the left frontal sinus, left ethmoid air cells, and left sphenoid sinus cavity. Significant mucosal disease partially visualized in the maxillary sinuses and in the right ethmoid air cells as well. CT/CT head/brain wo IV con IMPRESSION: No acute intracranial pathology. Worsened partially imaged severe paranasal sinus disease.
== END 2023-01-22 10:23 | disposition home or self-care (01) ==
LOC: HO.CT 10:22
PROVIDERS: PCP Internal Medicine; Visit Provider Internal Medicine
DX: R51.9 Headache, unspecified (principal)
CPT/HCPCS: 70450

== ENCOUNTER 2023-03-09 09:25 | Outpatient (AMB) | payer MEDICAID, SELFPAY ==
--- NOTE | 2023-03-09 09:35 | MHC.OFFVIS ---
Intake Vital Signs 03/09/23 09:40 Height 5 ft 4 in Weight 212 lb 1.355 oz BMI 36.4 BP 111/68 Blood Pressure Location Rt brachial Position Sitting Pulse 81 Intake Visit Reasons: Colonoscopy Screening Intake Note: Patient presents to in office visit today as a new patient for colonoscopy screening. CC: Patient has never had colonoscopy done before. She c/o constipation, hemorrhoids, and rectal bleeding. Denies other GI symptoms. Branch Or Department Chief Librarian Required: Yes Accompanied by: Mother Allergies lisinopril [LISINOPRIL] Allergy (Intermediate, Verified 03/09/23 09:43) Palpitations NSAIDS Allergy (Intermediate, Uncoded 01/01/23 10:26) Hypertension HPI Colonoscopy Screening HPI Details 51-year-old female here for preprocedural meeting to discuss a screening colonoscopy. She is referred by MARIO Laguerre of [facility]. PMX Paroxysmal atrial fibrillation-ASA and flecainide only - Has watchman implanted FAMILIA Asthma Hypertension High cholesterol IgA nephropathy Anxiety/depression History of subdural hematoma Pre diabetes Alopecia * SURGICAL HISTORY Sinus surgery C section Tubal ligation. Bifrontal craniotomyv x 2 History of chemical cardioversion Watchman installed for afib * ALLERGIES Lisinopril -renal effects NSAIDs * [facility] EHR LABS: Laboratory Tests 12/24/22 11:00 WBC 8.1 Hct 38.1 MCV 93.4 Plt Count 237 Estimated GFR > 60 Hemoglobin A1c % 5.8 Uric Acid 7.2 H TODAY'S VISIT Chinese #Nyla This is her first colonoscopy. She suffers CIC badly, she drinks prune juice daily (limited r/t pre diabetes) but she will only move her bowels every 5 days and her hemorrhoidal then manifest externally and are ?bad.? She can not use stimulant laxatives r/t her afib and has failed miralax, lactulose fiber etc. No upper GI problems. There are no prior problems with anesthesia or sedation. She has afib and a WATCHMAN device, FAMILIA and Asthma that is well controlled. No ID problems. Her brother and her paternal uncle had CRC and a maternal uncle had CRC as well. [facility] Medical History (Updated 03/09/23 @ 10:28 by MATT Schafer) Interatrial cardiac shunt History of cardioversion Pre-diabetes History of subdural hematoma High cholesterol Presence of Watchman left atrial appendage closure device Paroxysmal atrial fibrillation HTN (hypertension) FAMILIA (obstructive sleep apnea) Intracranial hemorrhage Surgical History (Updated 03/09/23 @ 10:28 by MATT Schafer) History of tubal ligation History of section H/O craniotomy H/O sinus surgery Family History Father HTN (hypertension) Heart disease Diabetes Mother HTN (hypertension) Diabetes Maternal Uncle Colon cancer Paternal Aunt Colon cancer Paternal Grandfather Prostate cancer Maternal Uncle Stomach cancer Social History Alcohol intake: never Patient Tobacco Use Status: Never used Tobacco Review of Systems Const Denies fatigue, Denies fever(s), Denies night sweats, Denies poor appetite and Denies weight loss ENT Reports Normal hearing present, Denies dental pain, Denies dysphagia, Denies hearing loss, Denies mouth pain, Denies odynophagia, Denies throat swelling, Denies tongue swelling and Reports other (Dentition adequate) Card Reports no additional complaints Resp Reports no additional complaints GI Denies abdominal pain, Denies melena, Denies bloating, Denies hematochezia, Reports constipation, Denies GI cramping, Denies dysphagia, Denies excessive flatus, Denies early satiety, Denies heartburn, Denies diarrhea, Denies nausea, Denies odynophagia, Denies vomiting and Denies hematemesis Skin/Breast Denies pruritus, Denies lesions, Denies rash and Denies jaundice Neuro Reports Normal hearing present and Denies Abnormal speech present Endo Denies fatigue Aller/Immun Denies throat swelling and Denies tongue swelling Physical Exam Vital Signs: Last Vital Signs Pulse 81 03/09/23 09:40 BP 111/68 03/09/23 09:40 BMI result Body Mass Index 36.4 Const General: cooperative, no acute distress, well developed and well groomed Nutritional Appearance: well nourished and obese Orientation/consciousness: oriented to person, oriented to place and oriented to time Limitations: language barrier HEENT Head: Yes normocephalic and Yes atraumatic Eyes General: appearance normal, both eyes and all related structures Pupils: Equal, round and reactive pupils present Neck Neck: Yes normal visual inspection and Yes no lymphadenopathy Thyroid: Thyroid normal Resp Effort & Inspection: normal respiratory effort and able to speak in complete sentences Auscultation: clear to auscultation bilaterally Cardio Rate: regular rate Rhythm: regular rhythm Heart sounds: Normal, physiologic split S2 sound present Peripheral pulses: radial pulses present and posterior tibial pulses present GI Inspection: No distended, Yes Abdominal panniculus present and Yes obesity Palpation (GI): Soft to palpation, nontender, no guarding, not rigid and No hepatosplenomegaly present Percussion: Yes normal to percussion Auscultation: normal bowel sounds Rectal Exam - Female: deferred Abdomen image: 1. surgical scar Skin General skin exam: no rashes or lesions noted, turgor normal, skin not dry, no jaundice, No spider nevi and no striae Rashes: no rashes Nails: normal Neuro General: oriented to person, oriented to place and oriented to time Cranial nerves: Yes Equal, round and reactive pupils present and Yes Normal hearing present Speech: No Abnormal speech present Extrem General: Yes normal to inspection, No clubbing, No cyanosis and No edema Psych Appearance: grossly normal and well kempt Mental Status: mental status grossly normal Speech and movement: Normal speech and movement present Affect: normal affect Attitude: cooperative Thought process: Normal thought process present and not confabulating Thought content: Normal thought content present Insight: Limited insight present (Psych) Judgement: Limited judgement present (Psych) Results Reviewed Results Reviewed: Laboratory Tests 12/24/22 11:00 WBC 8.1 Hct 38.1 MCV 93.4 Plt Count 237 Estimated GFR > 60 Hemoglobin A1c % 5.8 Uric Acid 7.2 H Assessment & Plan Assessment & Plan (1) Pre-op examination: Code(s): Z01.818 - Encounter for other preprocedural examination (2) FAMILIA (obstructive sleep apnea): Code(s): G47.33 - Obstructive sleep apnea (adult) (pediatric) (3) Paroxysmal atrial fibrillation: Code(s): I48.0 - Paroxysmal atrial fibrillation (4) IgA nephropathy: Code(s): N02.8 - Recurrent and persistent hematuria with other morphologic changes (5) Chronic idiopathic constipation: Code(s): K59.04 - Chronic idiopathic constipation (6) Presence of Watchman left atrial appendage closure device: Code(s): Z95.818 - Presence of other cardiac implants and grafts Plan Chinese #Nyla This is her first colonoscopy. She suffers CIC badly, she drinks prune juice daily (limited r/t pre diabetes) but she will only move her bowels every 5 days and her hemorrhoidal then manifest externally and are ?bad.? She can not use stimulant laxatives r/t her afib and has failed miralax, lactulose fiber etc. No upper GI problems. There are no prior problems with anesthesia or sedation. She has afib and a WATCHMAN device, FAMILIA and Asthma that is well controlled. No ID problems. Her brother and her paternal uncle had CRC and a maternal uncle had CRC as well. Orders: Orders Colonoscopy - GI Use Only Today Z01.818 - Encounter for other preprocedural examination Medications: New peg 3350-electrolytes 236-22.74-6.74 -5.86 gram (Golytely) until fecal effluent is clear; do not exceed a total volume of 2,000 mL 240 mL PO Q10M 1 day 4,000 mL 0RF Z12.11 - Encounter for screening for malignant neoplasm of colon bisacodyl (Dulcolax (bisacodyl)) 10 mg (2 x 5 mg) PO BEDTIME 2 days 4 tabs 0RF linaclotide (Linzess) 145 mcg PO QAM 30 caps 3RF K59.04 - Chronic idiopathic constipation Coding Level of Care Code New Pt Level 3 (71951) Diagnoses Pre-op examination Z01.818 FAMILIA (obstructive sleep apnea) G47.33 Paroxysmal atrial fibrillation I48.0 IgA nephropathy N02.8 Chronic idiopathic constipation K59.04 Presence of Watchman left atrial appendage closure device Z95.818
[2023-03-09 09:40] VITALS: BP 111/68; PULSE 81; BMI 36.4
== END 2023-03-09 11:30 | disposition home or self-care (01) ==
PROVIDERS: PCP Internal Medicine; Visit Provider Nurse Practitioner
DX: Z01.818 Encounter for other preprocedural examination (principal); G47.33 Obstructive sleep apnea (adult) (pediatric); I48.0 Paroxysmal atrial fibrillation; N02.8 Recurrent and persistent hematuria with other morphologic changes; K59.04 Chronic idiopathic constipation; Z95.818 Presence of other cardiac implants and grafts
CPT/HCPCS: 99203

== ENCOUNTER → 2023-03-09 09:25 | Outpatient (BNVA) | payer MEDICAID, SELFPAY | PROVIDERS: PCP Internal Medicine; Visit Provider Nurse Practitioner | DX: Z01.818 Encounter for other preprocedural examination (principal); I48.0 Paroxysmal atrial fibrillation; G47.33 Obstructive sleep apnea (adult) (pediatric); N02.8 Recurrent and persistent hematuria with other morphologic changes; K59.04 Chronic idiopathic constipation; Z95.818 Presence of other cardiac implants and grafts | CPT/HCPCS: 99212 ==

== ENCOUNTER → 2023-06-10 12:23 | Outpatient (REF) | payer MEDICAID, SELFPAY ==
--- NOTE | 2023-06-10 12:26 | CA_ITS ---
Transthoracic Echocardiogram Patient (Last, First, Middle): Elana Curry, Gender: Female Date of : 1970 Age: 53 Procedure Date: 06/10/2023 Procedure Type: Transthoracic Echocardiogram Location: OP Height: 165.1 cm Weight: 92.99 kg BSA: 2.00 m2 Heart Rate: 77 bpm BP: 128 / 76 mmHg [employer] Vice President: ASAD Referring MD: Bartolo Osullivan MD Symptoms: I48.0 - Paroxysmal atrial fibrillation Study Quality: Adequate ECG Rhythm: Sinus Conclusions: - Normal left ventricular size and systolic function. The visually estimated ejection fraction is between 55-60%. Diastolic function is normal for age. There is mild septal asymmetric hypertrophy. - Normal right ventricular cavity size and systolic function. Findings Procedure Information The quality of the study was technically difficult. The study quality is limited by patients body habitus. Left Ventricle Normal left ventricular size and systolic function. The visually estimated ejection fraction is between 55-60%. Diastolic function is normal for age. There is mild septal asymmetric hypertrophy. Right Ventricle Normal right ventricular cavity size and systolic function. Atria The left atrium is normal in size. The right atrium is normal in size. Aortic Valve Normal aortic valve structure and function. There is no aortic valve stenosis. There is no aortic valve regurgitation. Mitral Valve Normal mitral valve structure and function. There is no mitral valve regurgitation. There is no mitral valve stenosis. Pulmonic Valve Normal pulmonic valve structure and function. There is trace pulmonic valve regurgitation. Tricuspid Valve Normal tricuspid valve structure and function. There is no tricuspid valve regurgitation. Tricuspid regurgitation envelope is inadequate for calculation of right ventricular systolic pressure. Normal right atrial pressure. Great Vessels The visualized portions of the pulmonary artery and branches are normal. Venous The inferior vena cava is normal in size and collapses greater than 50% with inspiration. Pericardium/Pleural There is no evidence of pericardial effusion. Prior Study Comparison No significant change compared to prior study dated: 01/27/2021. Measurements 2D Linear Measurements IVSd: 1.15 0.6-0.9/0.6-1.0 cm LVIDd: 4.51 3.9-5.3/4.2-5.9 cm LVIDd Index: 2.26 2.4-3.2/2.2-3.1 cm/m2 LVIDs: 3.00 2.0-3.6 cm LVPWd: 0.64 0.7-1.1 cm LA Diam: 4.30 2.7-3.8/3.0-4.0 cm LAIDs Index: 2.15 1.5-2.3 cm/m2 LV Mass: 164.52 67-162/88-224 g LV Mass Index: 82.26 43-95/49-115 g/m2 LVOT Diam: 2.10 3.0+(-)1.3 cm 2D Systolic Function EF 4C: 62.80 >55% EF 2C: 47.70 >55% EF BiP: 56.30 >55% Mitral Valve MV Pk E: 0.78 MV PK A: 0.61 MV Decel Time: 184.00 E/A: 1.30 E'Lateral: 8.16 E'Medial: 7.40 E/E' Med: 10.50 E/E' Lat: 9.50 PHT: 54.00 MVA PHT: 4.07 Decel [place]: 4.22 Aortic Valve AoV Pk Aldo: 1.29 AoV Pk Grad: 7.00 CUATE: 3.12 LVOT LVOT Pk Aldo: 1.14 LVOT Mn Aldo: 0.79 LVOT VTI: 0.25 LVOT Pk Grad: 5.00 LVOT Mn Grad: 3.00 LVOT Diam: 2.10 LVOT Area: 3.46 Diastolic Function MV Pk E: 0.78 MV Pk A: 0.61 E/A: 1.30 E'Medial: 7.40 E/E' Med: 10.50 E' Laterial: 8.16 E/E' Lat: 9.50 Right Ventricle TAPSE (mm): 19.80 TVS' Aldo: 11.80 Tricuspid Valve RA Press: 3.00 Great Vessels Aorta Sinus of Valsalva: 3.20 2.0-3.5 cm Ao Asc: 3.40 2.1-3.4 cm Pulmonary Veins Pulm Vein S/D 1.70 Pulmonary Valve PV Pk Aldo: 0.96 Peak PV Grad: 4.00 Updated in Other Vendor System with Status of Final Juvencio Peck MD electronically signed on 06/12/2023 2:10:06 PM with status of Final
== END ==
LOC: HO.CARD 12:23
PROVIDERS: PCP Internal Medicine; Visit Provider Internal Medicine Cardiovascular Disease
DX: I48.0 Paroxysmal atrial fibrillation (principal)
CPT/HCPCS: 93306

== ENCOUNTER → 2023-06-10 12:26 | Outpatient (BNV) | payer MEDICAID, SELFPAY | PROVIDERS: PCP Internal Medicine; Visit Provider Internal Medicine Cardiovascular Disease | DX: I42.2 Other hypertrophic cardiomyopathy (principal) | CPT/HCPCS: 93306 ==

== ENCOUNTER 2023-07-01 10:22 | Outpatient (AMB) | payer MEDICAID, SELFPAY ==
[2023-07-01 10:55] VITALS: BP 120/80; PULSE 77; BMI 35.2
--- NOTE | 2023-07-01 10:55 | MHC.OFFVIS ---
Vital Signs 07/01/23 10:55 Height 5 ft 4 in Weight 205 lb 0.478 oz BMI 35.2 BP 120/80 Blood Pressure Location Lt brachial Position Sitting Pulse 77 Intake Visit Reasons: 1 yr s/p echo/ w/ ekg Intake Note: 1 year follow-up after echo with ekg c/o some palpitations Salary And Wage Administrator Required: Yes Salary And Wage Administrator Name: Elana cyracom Allergies lisinopril [LISINOPRIL] Allergy (Intermediate, Verified 03/09/23 09:43) Palpitations NSAIDS Allergy (Intermediate, Uncoded 01/01/23 10:26) Hypertension Medication List - Last Reconciled 07/01/23 by Bartolo Osullivan MD albuterol sulfate 90 mcg/actuation (ProAir HFA) 0 mcg PO Q4H PRN aspirin 81 mg PO DAILY azelastine 1 spray intranasal BID bisacodyl (Dulcolax (bisacodyl)) 10 mg (2 x 5 mg) PO BEDTIME 2 days blood sugar diagnostic (FreeStyle Lite Strips) As directed cholecalciferol (vitamin D3) 25 mcg PO DAILY flecainide 50 mg PO Q12H hydrochlorothiazide 12.5 mg PO DAILY labetalol 100 mg PO BID linaclotide (Linzess) 145 mcg PO QAM magnesium oxide 400 mg PO DAILY 30 days melatonin 3 mg PO BEDTIME PRN 30 days peg 3350-electrolytes 236-22.74-6.74 -5.86 gram (Golytely) 240 mL PO Q10M 1 day simvastatin 20 mg PO BEDTIME sumatriptan succinate 25 mg PO Q2-4H PRN valsartan 160 mg PO .at bedtime venlafaxine ER 150 mg PO QAM HPI Comments Details: Elana comes for follow-up. History was obtained with help of windows security engineer. Patient is feeling well overall. Last month she had lot of stress related to her son's health as well as was having lot of caffeine and chocolate. She was noticing some palpitations. However these palpitations felt like rapid heart rate they were not very bothersome to her. The lasted very short period time. Since then she is cut down her caffeine and chocolate intake and symptoms have subsided. She has using a CPAP regularly. A blood pressures been well controlled. She denies any new exertional chest pain or shortness of breath. Recent echocardiogram showed normal LV ejection fraction with mild asymmetric septal hypertrophy without significant valvular abnormality [facility] Medical History Interatrial cardiac shunt History of cardioversion Pre-diabetes History of subdural hematoma High cholesterol Presence of Watchman left atrial appendage closure device Paroxysmal atrial fibrillation HTN (hypertension) FAMILIA (obstructive sleep apnea) Intracranial hemorrhage Surgical History History of tubal ligation History of section H/O craniotomy H/O sinus surgery Family History Father HTN (hypertension) Heart disease Diabetes Mother HTN (hypertension) Diabetes Maternal Uncle Colon cancer Paternal Aunt Colon cancer Paternal Grandfather Prostate cancer Maternal Uncle Stomach cancer Social History Alcohol intake: never Patient Tobacco Use Status: Never used Tobacco Review of Systems Const Denies chills, Denies fatigue, Denies fever(s), Denies frequent falls, Denies weakness, Denies weight gain and Denies weight loss ENT Denies dizziness Card Denies chest pain, Denies leg edema, Denies lightheadedness, Denies palpitations, Denies dyspnea, Denies dyspnea on exertion, Denies orthopnea and Denies other (loss of consciousness) Resp Denies cough, Denies dyspnea and Denies dyspnea on exertion GI Denies hematochezia and Denies change in stool character Musc Denies abnormal gait, Denies muscle weakness, Denies numbness, Denies radiating pain into limb and Denies tingling Neuro Denies abnormal gait, Denies dizziness, Denies frequent falls, Denies numbness, Denies tingling and Denies weakness Endo Denies fatigue and Denies palpitations Physical Exam Vital Signs: Last Vital Signs Pulse 77 07/01/23 10:55 BP 120/80 07/01/23 10:55 BMI result Body Mass Index 35.2 Const General: cooperative, comfortable, no acute distress, alert, awake and well groomed Nutritional Appearance: overweight Orientation/consciousness: patient oriented x3 Limitations: no limitations Neck Neck: Yes trachea midline, Yes supple and Yes no JVD Resp Effort & Inspection: normal respiratory effort Auscultation: clear to auscultation bilaterally Cardio Jugular venous distension: no JVD Palpation: normal PMI Rate: regular rate Rhythm: regular rhythm Heart sounds: S1 normal heart sound present and S2 normal heart sound present GI Auscultation: normal bowel sounds Skin General skin exam: no rashes or lesions noted Neuro General: patient oriented x3 and no focal motor deficits Extrem General: Yes no clubbing, cyanosis or edema Psych Appearance: grossly normal Office Procedures EKG Details: EKG shows normal sinus rhythm nonspecific ST T wave changes at 77 beats per minute [id number], Complete Assessment & Plan Assessment & Plan (1) Paroxysmal atrial fibrillation: Code(s): I48.0 - Paroxysmal atrial fibrillation Category: Medical Plan: Highly symptomatic paroxysmal atrial fibrillation with recent episode which appears to be triggered by increased stress and increased caffeine and chocolate intake. Discussed with her about avoidance of triggers. Stress mitigation strategies were discussed. She says the symptoms are not significantly bothersome. At this point time will pursue current rhythm control approach with flecainide and concomitant labetalol therapy to reduce rapid conduction of flutter through the AV node. Management was discussed in details. If she is persistent recurrent episode advised to call my office. Continue aspirin therapy, status post Watchman device. Continue risk factor modification as below. (2) HTN (hypertension): Code(s): I10 - Essential (primary) hypertension Category: Medical Plan: Hypertension which is currently well optimized advised to monitor blood pressure at home maintain a log. Goal blood pressure less than 30/84. Continue current therapy. Low-salt discussed. Importance of good blood pressure control was discussed. Continue CPAP therapy. Encouraged to continue to participate in physical activity and weight loss program. Will follow up in the clinic in 6 months for EKG in 1 year with me. Thank you allowing me to partake in the care Coding Level of Care Code Est Pt Level 4 (31876) Diagnoses Paroxysmal atrial fibrillation I48.0 HTN (hypertension) I10 CPT Codes EKG - CPT: 41117-[id number], Complete ([id number])
== END 2023-07-01 11:21 | disposition home or self-care (01) ==
PROVIDERS: PCP Internal Medicine; Referring Provider Registered Nurse; Visit Provider Internal Medicine Cardiovascular Disease
DX: I48.0 Paroxysmal atrial fibrillation (principal); I10 Essential (primary) hypertension
CPT/HCPCS: 93010; 99214

== ENCOUNTER → 2023-07-01 10:22 | Outpatient (BNVA) | payer MEDICAID, SELFPAY | PROVIDERS: Visit Provider Internal Medicine Cardiovascular Disease | DX: I48.0 Paroxysmal atrial fibrillation (principal); I10 Essential (primary) hypertension | CPT/HCPCS: 93005; 99212 ==

== ENCOUNTER 2023-07-23 10:14 | Outpatient (REF) | payer MEDICAID, SELFPAY | END 2023-07-23 10:15 | disposition home or self-care (01) | LOC: HO.MAMMO 10:14 | PROVIDERS: PCP Internal Medicine; Visit Provider Internal Medicine | DX: Z12.31 Encounter for screening mammogram for malignant neoplasm of breast (principal) | CPT/HCPCS: 77063; 77067 ==

== ENCOUNTER → 2023-07-23 10:45 | Outpatient (BNV) | payer MEDICAID, SELFPAY | PROVIDERS: PCP Internal Medicine; Visit Provider Radiology Diagnostic Radiology | DX: Z12.31 Encounter for screening mammogram for malignant neoplasm of breast (principal) | CPT/HCPCS: 77063; 77067 ==

== ENCOUNTER 2023-09-17 08:43 | Outpatient (REF) | payer MEDICAID, SELFPAY ==
[2023-09-17 13:07] LABS: MANUAL DIFF FLAG NO
[2023-09-17 13:20] LABS: Basophils Percent Auto 0.5 % (0-2); Eosinophils Absolute Auto 0.6 X10*3/uL (0.0-0.4); Eosinophils Percent Auto 10.5 % (0-4); Hemoglobin 12.3 g/dl (12.0-16.0); Imm Gran Abs Auto 0.01 X10*3/uL (0.00-0.03); Imm Gran Pct Auto 0.2 % (0.0-0.4); Lymphocytes Absolute Auto 1.5 X10*3/uL (1.2-4.9); Lymphocytes Percent Auto 27.5 % (20-40); Mean Corpuscular HGB Conc 32.4 g/dl (31.0-35.0); Mean Corpuscular Hemoglobin 30.1 pg (27.0-33.0); Mean Corpuscular Volume 93.1 fL (80.0-98.0); Mean Platelet Volume 9.7 fL (9.4-12.3); Monocytes Absolute Auto 0.4 X10*3/uL (0.1-1.2); Monocytes Percent Auto 7.1 % (2-11); Neutrophils Percent Auto 54.2 % (45-73); Platelet Count 218 X10*3/uL (160-400); Red Blood Count 4.08 X10*6/uL (4.20-5.50); Red Cell Distribution Width 13.1 % (11.0-16.0); White Blood Count 5.5 X10*3/uL (4.8-10.8)
[2023-09-17 14:55] LABS: Estimated Average Glucose 126 mg/dL
[2023-09-17 17:22] LABS: Anion Gap 15 (12-20); Carbon Dioxide 26 mmol/L (22-29); Chloride 106 mmol/L (96-108); Potassium 3.6 mmol/L (3.3-5.1); Sodium 143 mmol/L (135-145)
[2023-09-17 17:23] LABS: Alanine Aminotransferase 24 U/L (0-31); Aspartate Amino Transferase 19 U/L (5-31); Bilirubin Direct 0.3 mg/dL (0.0-0.5); Bilirubin Total 0.9 mg/dL (0.0-1.0); Blood Urea Nitrogen 14 mg/dL (9-16); Calcium 9.8 mg/dL (8.4-10.2); Estimated Glomerular Filt Rate > 60; Glucose Random 114 mg/dL (60-115); Total Protein 7.1 g/dL (6.5-8.0)
[2023-09-17 17:24] LABS: Albumin Level 4.4 g/dL (3.5-5.0); Alkaline Phosphatase 64 U/L (39-117); Cholesterol 177 mg/dL (<200); HDL Cholesterol 71 mg/dL (>40); LDL Cholesterol Calculated 92 mg/dL (<100); Triglycerides 72 mg/dL (<150)
== END 2023-09-17 08:44 | disposition home or self-care (01) ==
LOC: HO.HHCL 08:43
PROVIDERS: Visit Provider Internal Medicine
DX: R00.2 Palpitations (principal)
CPT/HCPCS: 36415; 80048; 80061; 80076; 83036; 84443; 85025

== ENCOUNTER → 2024-01-12 10:33 | Outpatient (REF) | payer MEDICAID, SELFPAY ==
--- NOTE | 2024-01-12 10:35 | HM_ITS ---
Conclusion: 1. Patient was monitored for total period of 1 day and 23 hours 2. Baseline was normal sinus rhythm with average heart of 82 beats per minute 3. No significant arrhythmias or pauses noted 4. No patient marked events MTDD
== END ==
LOC: HO.CARD 10:33
PROVIDERS: PCP Internal Medicine; Visit Provider Internal Medicine Cardiovascular Disease
DX: I48.0 Paroxysmal atrial fibrillation (principal)
CPT/HCPCS: 93242

== ENCOUNTER → 2024-01-12 10:35 | Outpatient (BNV) | payer MEDICAID, SELFPAY | PROVIDERS: PCP Internal Medicine; Visit Provider Internal Medicine Cardiovascular Disease | DX: R00.0 Tachycardia, unspecified (principal) | CPT/HCPCS: 93227 ==

== ENCOUNTER 2024-02-19 08:22 | Emergency (ER) | payer MEDICAID, SELFPAY ==
[2024-02-19 08:33] VITALS: BP 124/77; PULSE 90; RESP 18; TEMP 37.5; O2SAT 97; BMI 33.6
--- NOTE | 2024-02-19 09:11 | ED.EXTPRO ---
HPI - Extremity Problem General Chief complaint: Extremity Injury, Upper Stated complaint: pain r side into neck area Time Seen by Provider: 02/19/24 09:05 Source: patient and family Mode of arrival: ambulatory Limitations: no limitations History of Present Illness ED Provider: Lilli Schwarz PA-C HPI Narrative: 53 yo female with history of HTN, FAMILIA, depression/anxiety, IgA nephropathy, cardiac arrythmia on flecinide not on anticoagulation who presents to the ER for evaluation of right sided neck pain that radiates down her arm that she woke up with 4 days ago. She reports the pain is shooting and worse when she moves her head/neck in certain positions. she denies associates numbness and tingling. she reports weakness in her hand grasp due to pain. she has a slight headache as well. no fever, chills, joint pain or swelling. no rashes. MD Complaint: extremity pain Onset (ago): day(s) (4) Location: right and upper extremity Quality: sharp Radiation: distal Relieving factors: rest Exacerbating factors: range of motion Associated symptoms: denies other symptoms Related Data Home Medications ?Medication ?Instructions ?Recorded ?Confirmed simvastatin 20 mg tablet 20 mg PO BEDTIME 01/17/20 07/01/23 sumatriptan succinate 25 mg tablet 25 mg PO Q2-4H PRN 01/17/20 07/01/23 cholecalciferol (vitamin D3) 25 25 mcg PO DAILY 07/09/20 07/01/23 mcg (1,000 unit) capsule hydrochlorothiazide 12.5 mg tablet 12.5 mg PO DAILY 07/09/20 07/01/23 labetalol 100 mg tablet 100 mg PO BID 07/09/20 07/01/23 albuterol sulfate 90 mcg/actuation 0 mcg PO Q4H PRN 06/24/21 07/01/23 aerosol inhaler (ProAir HFA) azelastine 137 mcg (0.1 %) nasal 1 spray intranasal BID 01/01/23 07/01/23 spray blood sugar diagnostic (Gerard #10 ea 01/01/23 07/01/23 Lite Strips) valsartan 160 mg tablet 160 mg PO .at bedtime 01/01/23 07/01/23 venlafaxine 150 mg 150 mg PO QAM 11/03/23 05/02/24 capsule,extended release 24 hr Previous Rx's ?Medication ?Instructions ?Recorded magnesium oxide 400 mg PO DAILY 30 days #30 tabs 01/01/23 melatonin 3 mg tablet 3 mg PO BEDTIME PRN sleep 30 days 01/01/23 #30 tabs bisacodyl 5 mg tablet,delayed 10 mg (2 x 5 mg) PO BEDTIME 2 days 03/09/23 release (Dulcolax (bisacodyl)) #4 tabs linaclotide 145 mcg capsule 145 mcg PO QAM #30 caps 03/09/23 (Linzess) peg 3350-electrolytes 236 240 ml PO Q10M 1 day #4,000 mL 03/09/23 gram-22.74 gram-6.74 gram-5.86 gram solution (Golytely) flecainide 50 mg tablet 50 mg PO Q12H #180 tabs 06/01/23 aspirin 81 mg tablet,delayed 81 mg PO DAILY #90 tabs 06/15/23 release cyclobenzaprine 10 mg tablet 10 mg PO TID PRN muscle spasm #10 02/19/24 tabs lidocaine 5 % topical patch 1 patch topical DAILY #15 ea 02/19/24 naproxen 500 mg tablet 500 mg PO BID PRN pain #20 tabs 02/19/24 Allergies Allergy/AdvReac Type Severity Reaction Status Date / Time lisinopril [LISINOPRIL] Allergy Intermediate Palpitation Verified 02/19/24 08:35 s NSAIDS Allergy Intermediate Hypertensio Uncoded 02/19/24 08:35 n Review of Systems Review of Systems: Yes all other systems are reviewed and are negative [facility] Past Medical History Medical History Interatrial cardiac shunt History of cardioversion Pre-diabetes History of subdural hematoma High cholesterol Presence of Watchman left atrial appendage closure device Paroxysmal atrial fibrillation HTN (hypertension) FAMILIA (obstructive sleep apnea) Intracranial hemorrhage Surgical History History of tubal ligation History of section H/O craniotomy H/O sinus surgery Family History Family History Father HTN (hypertension) Heart disease Diabetes Mother HTN (hypertension) Diabetes Maternal Uncle Colon cancer Paternal Aunt Colon cancer Paternal Grandfather Prostate cancer Maternal Uncle Stomach cancer Social History Social History Alcohol intake: never Patient Tobacco Use Status: Never used Tobacco Advance Directives: No Advance Directives Information Provided: No Physical Exam Vital Signs: Vital Signs: Last Vital Signs Temp 98.7 F 02/19/24 09:32 Pulse 88 02/19/24 09:32 Resp 18 02/19/24 09:32 BP 121/76 02/19/24 09:32 Pulse Ox 98 02/19/24 09:32 O2 Del Method Room Air 02/19/24 09:32 BMI result Body Mass Index 33.6 Appearance: Alert. Oriented X3. No acute distress. HEENT: normal inspection Neck: normal ROM with pain upon full rotation to the left and right. no midline tenderness. soft tissue tenderness on the right lateral neck only CVS: Normal heart rate and rhythm. Pulses normal. Respiratory: No respiratory distress. Skin: Skin warm and dry. Normal skin color. Normal skin turgor. No rashes. Extremities: normal inspection of the bilateral UE. Strength is equal and symmetrical. no joint swelling or tenderness of the right elbow, shoudler or wrist. FROM of all joints right proximal shoulder with soft tissue tenderness and associated muscle spasm. Neuro: Oriented X 3. No motor deficit. No sensory deficit. Medications Administered Discontinued Medications Generic Name Dose Route Start Last Admin Trade Name Freq PRN Reason Stop Dose Admin Ketorolac Tromethamine 30 mg 02/19/24 09:19 02/19/24 09:27 Ketorolac Tromethamine 30 Mg/Ml Vial IM 02/19/24 09:20 30 mg ONCE ONE Administration Lidocaine 1 patch 02/19/24 09:19 02/19/24 09:28 Lidocaine 4 % Patch Adh..Patch TRANSDERMA 02/19/24 09:20 1 patch ONCE ONE Administration Protocol Medical Decision Making Medical Decision Making MDM Narrative: 53 yo female presents to the ER for evaluation of right-sided neck pain that radiates down the right upper extremity, this started 4 days ago, she woke up with the pain. It is worse with certain movements, pain is shooting in nature. No associated numbness or tingling. On examination she has no focal neurologic deficits. She does have soft tissue tenderness of the lateral right neck, upper trapezius. She has full range of motion of the shoulder, elbow, wrist on the right arm. There is slight decreased credit portfolio manager strength on the right side due to pain. No sensory deficits. No need for emergent imaging today. Etiology is most likely due to cervical radiculopathy. Will treat with anti-inflammatories and muscle relaxers. Encouraged follow-up with her primary care doctor, she may benefit from physical therapy. At this time she is stable for discharge home with outpatient follow-up. Patient agrees with plan and all questions were answered. Return precautions were discussed. Differential Diagnosis Differential Diagnoses: The differential diagnosis associated with the presentation includes cervical radiculopathy, bursitis, adhesive capsulitis, muscle strain, neuropathy, low suspicion for cardiac etiology Independent Historian Clinical information obtained from an independent historian. History obtained from or confirmed by: Spouse External Record Review External record reviewed: Prior outpatient labs Tests considered The following testing was considered but not selected: Considered EKG and lab workup however there was low clinical suspicion for cardiac etiology Prescription Management I considered prescription management with: Pain Medication Chronic Conditions Patient?s care impacted by: Hypertension and Other (Cardiac arrhythmia) Critical Care Time Critical Care Time Critical Care Time: No Discharge Plan Discharge Clinical Impression: Cervical radiculopathy Patient Disposition: Home, Self-Care Instructions: Cervical Radiculopathy (ED) Additional Instructions: Your pain is most likely due to inflammation and irritation of one of the nerves in your neck that is causing pain to radiate down your arm. Limit use of the right arm, no heavy lifting for at least 1 week. Use ice several times per day for 20 minutes at a time for the next 48 hours and then change to heat. Take medications as prescribed to help with pain and discomfort. Follow up with your Primary Care Doctor next week. You may benefit from physical therapy If you develop new or worsening symptoms call 911 or come back to the ER for further evaluation. Prescriptions: New cyclobenzaprine 10 mg tablet 10 mg PO TID PRN (Reason: muscle spasm) Qty: 10 0RF lidocaine 5 % adhesive patch,medicated 1 patch topical DAILY Qty: 15 0RF Rx Instructions: leave on most painful area for up to 12 hrs naproxen 500 mg tablet 500 mg PO BID PRN (Reason: pain) Qty: 20 0RF No Action flecainide 50 mg tablet 50 mg PO Q12H Qty: 180 2RF Rx Instructions: Keep your appt on 07/01/23 11:00 at [facility] Dr. Shi MD aspirin 81 mg tablet,delayed release (DR/EC) 81 mg PO DAILY Qty: 90 3RF labetalol 100 mg tablet 100 mg PO BID hydrochlorothiazide 12.5 mg tablet 12.5 mg PO DAILY cholecalciferol (vitamin D3) 25 mcg (1,000 unit) capsule 25 mcg PO DAILY simvastatin 20 mg tablet 20 mg PO BEDTIME sumatriptan succinate 25 mg tablet 25 mg PO Q2-4H PRN Rx Instructions: do not exceed 8 doses per 24 hrs albuterol sulfate [ProAir HFA] 90 mcg/actuation HFA aerosol inhaler 0 mcg PO Q4H PRN valsartan 160 mg tablet 160 mg PO .at bedtime venlafaxine 150 mg capsule,extended release 24hr 150 mg PO QAM (DME) FreeStyle Lite Strips Strip See Rx Instructions .ROUTE DAILY Qty: 10 Rx Instructions: As directed azelastine 137 mcg (0.1 %) aerosol,spray 1 spray intranasal BID magnesium oxide 400 mg magnesium tablet 400 mg PO DAILY 30 Days Qty: 30 6RF melatonin 3 mg tablet 3 mg PO BEDTIME PRN (Reason: sleep) 30 Days Qty: 30 6RF bisacodyl [Dulcolax (bisacodyl)] 5 mg tablet,delayed release (DR/EC) 10 mg PO BEDTIME 2 Days Qty: 4 0RF peg 3350-electrolytes [Golytely] 236-22.74-6.74 -5.86 gram recon soln 240 ml PO Q10M 1 Days Qty: 4000 0RF Rx Instructions: until fecal effluent is clear; do not exceed a total volume of 2,000 mL Linzess 145 mcg capsule 145 mcg PO QAM Qty: 30 3RF Referrals: Elana Luu MD [Primary Care Provider] - Interventions: ED Discharge Assessment Last Done: 02/19/24 09:32 Discharge Date/Time: 02/19/24 09:33 Print Language: Bruneian
[2024-02-19] MEDS: Ketorolac Tromethamine 30 MG/ML VIAL IM (09:27)
[2024-02-19] MEDS: Lidocaine 4 % Patch ADH..PATCH 1 PATCH TRANSDERMA (09:28)
--- NOTE | 2024-02-19 09:31 | PC.NURSE ---
pt a&ox3, vss, pt medicated for 9/10 rt shoulder/neck pain. pt discharging to home with prescriptions.
[2024-02-19 09:32] VITALS: BP 121/76; PULSE 88; RESP 18; TEMP 37.1; O2SAT 98
== END 2024-02-19 09:33 | disposition home or self-care (01) ==
PROVIDERS: Emergency Provider Emergency Medicine Emergency Medical Services; PCP Internal Medicine
DX: M54.12 Radiculopathy, cervical region (principal); M54.2 Cervicalgia; E11.9 Type 2 diabetes mellitus without complications; I10 Essential (primary) hypertension; I48.0 Paroxysmal atrial fibrillation; Z79.82 Long term (current) use of aspirin; Z79.02 Long term (current) use of antithrombotics/antiplatelets; Z79.899 Other long term (current) drug therapy
CPT/HCPCS: 96372; 99283; 99284; J1885

== ENCOUNTER 2024-03-06 14:31 | Outpatient (REF) | payer MEDICAID, SELFPAY ==
--- NOTE | ~2024-03-06 | XR_ITS ---
EXAMINATION: XR CERVICAL SPINE 4-5 VIEWS HISTORY: PAIN COMPARISON: There are no prior studies for comparison. FINDINGS: AP, lateral, bilateral oblique, and open-mouth odontoid views of the cervical spine are submitted. Osseous mineralization is normal. Seven cervical vertebral bodies are identified maintaining normal height and alignment without evidence of fracture or subluxation. There is mild degenerative disc disease at the C4-5 and C5-6 levels, with disc space narrowing and osteophyte formation. The right neural foramen are patent. There is mild narrowing of the left C5-6 neural foramen secondary to uncovertebral joint and facet hypertrophy. The odontoid and lateral masses of C1 are intact. There is no prevertebral soft tissue swelling. XR/XR cervical spine 5V IMPRESSION: Degenerative changes of the cervical spine as described. Electronically signed by: Sergey Lee MD 03/06/2024 03:28 PM [facility]
== END 2024-03-06 14:32 | disposition home or self-care (01) ==
LOC: HO.HHCX 14:31
PROVIDERS: Visit Provider Internal Medicine
DX: M54.12 Radiculopathy, cervical region (principal)
CPT/HCPCS: 72050

== ENCOUNTER → 2024-03-06 14:33 | Outpatient (BNV) | payer MEDICAID, SELFPAY | PROVIDERS: Visit Provider Radiology Diagnostic Radiology | DX: M54.12 Radiculopathy, cervical region (principal) | CPT/HCPCS: 72050 ==

== ENCOUNTER 2024-03-10 10:49 | Outpatient (AMB) | payer MEDICAID, SELFPAY ==
--- NOTE | 2024-03-10 10:50 | MHC.OFFVIS ---
Vital Signs 03/10/24 10:54 Height 5 ft 5 in Weight 207 lb BMI 34.4 Intake Visit Reasons: SUPERVISOR GENERAL- Cervical Radiculopathy Intake Note: Elana is a 53 year old female who presents today as a new patient for evaluation of cervical radiculopathy, referred by [facility]. Patient states her pain begins on the right side of her neck radiating down to her right arm causing numbness. She shares her right arm becomes weak when trying to lift objects. Denies prior injuries or surgeries to the right arm,shoulder, hand, neck or back. Patient did have a clavicle fracture at the age of 4. Patient reports she was previously diagnosed with tendonitis on her right arm. She is taking Tylenol PRN. diclofenac gel, and lidocaine patch for pain without relief. Patient was also prescribed gabapentin and cyclobenzaprine but is afraid to take it due to side effects like bleeding. Personal hx of brain bleed. Director Quality Assurance Required: Yes Director Quality Assurance Language: Technical Education Teacher Name: Kristen [id number] Allergies lisinopril [LISINOPRIL] Allergy (Intermediate, Verified 03/10/24 10:55) Palpitations NSAIDS Allergy (Intermediate, Uncoded 03/10/24 10:55) Hypertension Medication List - Last Reconciled 03/10/24 by Miranda Otero MD albuterol sulfate 90 mcg/actuation (ProAir HFA) 0 mcg PO Q4H PRN aspirin 81 mg PO DAILY azelastine 1 spray intranasal BID bisacodyl (Dulcolax (bisacodyl)) 10 mg (2 x 5 mg) PO BEDTIME 2 days blood sugar diagnostic (FreeStyle Lite Strips) As directed cholecalciferol (vitamin D3) 25 mcg PO DAILY cyclobenzaprine 10 mg PO TID PRN diclofenac sodium 1% grams topical QID flecainide 50 mg PO Q12H hydrochlorothiazide 12.5 mg PO DAILY hydroxyzine pamoate 25 mg PO labetalol 100 mg PO BID lidocaine 5% 1 patch topical DAILY linaclotide (Linzess) 145 mcg PO QAM magnesium oxide 400 mg PO DAILY 30 days melatonin 3 mg PO BEDTIME PRN 30 days metformin 500 mg PO BID naproxen 500 mg PO BID PRN peg 3350-electrolytes 236-22.74-6.74 -5.86 gram (Golytely) 240 mL PO Q10M 1 day simvastatin 20 mg PO BEDTIME sumatriptan succinate 25 mg PO Q2-4H PRN valsartan 160 mg PO .at bedtime venlafaxine ER 150 mg PO QAM HPI Comments Details: Right sided neck pain since January 2024. No inciting injury. First time to have this type of pain per patient. Right lateral neck pain goes to right hand, not the fingers. Numbness on same distribution, after doing things. Gets very tired easily. No PT yet. Cervical spine xray as below. [facility] Medical History Interatrial cardiac shunt History of cardioversion Pre-diabetes History of subdural hematoma High cholesterol Presence of Watchman left atrial appendage closure device Paroxysmal atrial fibrillation HTN (hypertension) FAMILIA (obstructive sleep apnea) Intracranial hemorrhage Surgical History History of tubal ligation History of section H/O craniotomy H/O sinus surgery Family History Father HTN (hypertension) Heart disease Diabetes Mother HTN (hypertension) Diabetes Maternal Uncle Colon cancer Paternal Aunt Colon cancer Paternal Grandfather Prostate cancer Maternal Uncle Stomach cancer Social History Alcohol intake: never Patient Tobacco Use Status: Never used Tobacco Review of Systems Const All systems reviewed & are unremarkable except as noted in HPI and below Physical Exam Vital Signs: BMI result Body Mass Index 34.4 Constitutional: Patient appears to be in no acute distress, well nourished and well developed. Patient was appropriately conversant and oriented. Good historian. MSK: Inspection reveals appropriate head and neck positioning. Tender right upper trapezius. Patient is unable to move neck or shoulder within normal range due to pain. Bilateral shoulder, elbow and wrist ROM WNL. No ligamentous laxity or crepitance. No increased effusion. Negative right empty can sign. Neurological: Neurologic examination of the upper and lower extremities was nonfocal with intact sensation, muscle stretch reflexes and without focal motor deficits . Morrow?s negative bilaterally. Gait is non-antalgic without loss of balance. Results Reviewed Results Reviewed: I independently reviewed the results of the following: Cervical spine x-ray reviewed independently, degenerative changes and decreased disc space in the most notable C4-5 and C5-6. Ordering Physician: Elana Luu MD Date of Service: 03/06/24 Procedure(s): XR cervical spine 5V Accession Number(s): [id number] cc: Elana Luu MD~ EXAMINATION: XR CERVICAL SPINE 4-5 VIEWS HISTORY: PAIN COMPARISON: There are no prior studies for comparison. FINDINGS: AP, lateral, bilateral oblique, and open-mouth odontoid views of the cervical spine are submitted. Osseous mineralization is normal. Seven cervical vertebral bodies are identified maintaining normal height and alignment without evidence of fracture or subluxation. There is mild degenerative disc disease at the C4-5 and C5-6 levels, with disc space narrowing and osteophyte formation. The right neural foramen are patent. There is mild narrowing of the left C5-6 neural foramen secondary to uncovertebral joint and facet hypertrophy. The odontoid and lateral masses of C1 are intact. There is no prevertebral soft tissue swelling. XR/XR cervical spine 5V IMPRESSION: Degenerative changes of the cervical spine as described. I reviewed records from the following: [facility] Assessment & Plan Assessment & Plan (1) Neck pain on right side: Code(s): M54.2 - Cervicalgia Category: Medical (2) Right shoulder pain: Code(s): M25.511 - Pain in right shoulder Category: Medical Qualifiers: Chronicity: acute Qualified Code(s): M25.511 - Pain in right shoulder Plan New onset right-sided lateral neck pain and shoulder pain. No signs of cervical radiculopathy or myelopathy on exam, although patient is unable to move neck or shoulder within normal range due to pain. Unfortunately she either could not tolerate NSAIDs or muscle relaxers, or afraid of long-term side effects. Therefore for now, continue topical patches. Referring her to physical therapy. Getting right shoulder x-ray today. Cervical x-ray results reviewed with patient. EMG is scheduled next week. Assessment and plan discussed with patient, and patient was agreeable. All questions were answered thoroughly. Follow up 4-6 weeks. Miranda Otero MD, DIEGO Board Certified, [place] Board [employer] and Rehabilitation (ABPMR) Board Certified, [place] Board of Electrodiagnostic Medicine (ABEM) Orders: Orders XR shoulder RT min 2V Today M25.511 - Pain in right shoulder, M54.2 - Cervicalgia PT Evaluation and Treatment Today M25.511 - Pain in right shoulder, M54.2 - Cervicalgia Medications: Discontinued naproxen Discontinued Reason: Patient no longer taking 500 mg PO BID PRN 20 tabs 0RF pain cyclobenzaprine Discontinued Reason: Patient no longer taking 10 mg PO TID PRN 10 tabs 0RF muscle spasm Coding Level of Care Code New Pt Level 4 (67543) Diagnoses Neck pain on right side M54.2 Acute pain of right shoulder M25.511 Chronicity: acute
[2024-03-10 10:54] VITALS: BMI 34.4
== END 2024-03-10 11:51 | disposition home or self-care (01) ==
PROVIDERS: Visit Provider Physical Medicine & Rehabilitation
DX: M54.2 Cervicalgia (principal); M25.511 Pain in right shoulder
CPT/HCPCS: 99204

== ENCOUNTER 2024-03-10 10:49 | Outpatient (REF) | payer MEDICAID, SELFPAY ==
--- NOTE | ~2024-03-10 | XR_ITS ---
CLINICAL HISTORY: M25.511 - Pain in right shoulder 2 view right shoulder Comparison: None Findings: Bones intact. No dislocations. No significant loss of joint space or osteophytes. Small degenerative cyst within the humeral head in the region of the rotator cuff insertion. No erosions. No radiopaque foreign body. IMPRESSION: 1. No acute findings This document has been electronically signed by: Theresa Mckenzie MD on 03/10/2024 15:43:42
== END 2024-03-10 10:50 | disposition home or self-care (01) ==
LOC: HO.HOSX 10:49
PROVIDERS: Visit Provider Physical Medicine & Rehabilitation
DX: M25.511 Pain in right shoulder (principal); M54.2 Cervicalgia
CPT/HCPCS: 73030; 99202

== ENCOUNTER 2024-03-21 06:07 | Outpatient (REF) | payer MEDICAID, SELFPAY | END 2024-03-21 06:08 | disposition home or self-care (01) | LOC: HO.NEURO 06:07 | PROVIDERS: Visit Provider Internal Medicine | DX: Z13.89 Encounter for screening for other disorder (principal) ==

== ENCOUNTER 2024-08-05 08:36 | Outpatient (REF) | payer MEDICAID, SELFPAY | END 2024-08-05 08:37 | disposition home or self-care (01) | LOC: HO.MAMMO 08:36 | PROVIDERS: PCP Internal Medicine; Visit Provider Internal Medicine | DX: Z12.31 Encounter for screening mammogram for malignant neoplasm of breast (principal) | CPT/HCPCS: 77063; 77067 ==

== ENCOUNTER → 2024-08-05 08:40 | Outpatient (BNV) | payer MEDICAID, SELFPAY | PROVIDERS: PCP Internal Medicine; Visit Provider Internal Medicine | DX: Z12.31 Encounter for screening mammogram for malignant neoplasm of breast (principal) | CPT/HCPCS: 77063; 77067 ==

== ENCOUNTER 2024-08-07 12:40 | Outpatient (AMB) | payer MEDICAID, SELFPAY ==
[2024-08-07 13:52] VITALS: BP 120/76; PULSE 74; BMI 34.1
--- NOTE | 2024-08-07 13:52 | MHC.OFFVIS ---
Vital Signs 08/07/24 13:52 Height 5 ft 5 in Weight 205 lb 0.478 oz BMI 34.1 BP 120/76 Blood Pressure Location Lt brachial Position Sitting Pulse 74 Intake Visit Reasons: 1 yr followup w/ekg Intake Note: 1 year follow-up with ekg feeling good Systems Protection Technician Required: Yes Systems Protection Technician Name: Clotilde Hoffman Allergies lisinopril [LISINOPRIL] Allergy (Intermediate, Verified 03/10/24 10:55) Palpitations NSAIDS Allergy (Intermediate, Uncoded 03/10/24 10:55) Hypertension Medication List - Last Reconciled 08/07/24 by Bartolo Osullivan MD albuterol sulfate 90 mcg/actuation (ProAir HFA) 0 mcg PO Q4H PRN aspirin 81 mg PO DAILY azelastine 1 spray intranasal BID bisacodyl (Dulcolax (bisacodyl)) 10 mg (2 x 5 mg) PO BEDTIME 2 days blood sugar diagnostic (FreeStyle Lite Strips) As directed cholecalciferol (vitamin D3) 25 mcg PO DAILY diclofenac sodium 1% grams topical QID flecainide 50 mg PO Q12H hydrochlorothiazide 12.5 mg PO DAILY hydroxyzine pamoate 25 mg PO labetalol 100 mg PO BID lidocaine 5% 1 patch topical DAILY linaclotide (Linzess) 145 mcg PO QAM magnesium oxide 400 mg PO DAILY 30 days melatonin 3 mg PO BEDTIME PRN 30 days metformin 500 mg PO BID peg 3350-electrolytes 236-22.74-6.74 -5.86 gram (Golytely) 240 mL PO Q10M 1 day simvastatin 20 mg PO BEDTIME sumatriptan succinate 25 mg PO Q2-4H PRN valsartan 160 mg PO .at bedtime venlafaxine ER 150 mg PO QAM HPI Comments Details: Elana comes for follow-up. History was obtained with help of a certified tram inspector on the telephone. She says she has been doing well. She has not had any significant cardiac symptoms. Occasional palpitation which are not prolonged. She feels fluttering in his chest. No prolonged atrial fibrillation episode. No exertional chest pain or shortness of breath. No orthopnea, PND. Blood pressures been generally well controlled. She takes all her medications. Uses CPAP. [facility] Medical History Interatrial cardiac shunt History of cardioversion Pre-diabetes History of subdural hematoma High cholesterol Presence of Watchman left atrial appendage closure device Paroxysmal atrial fibrillation HTN (hypertension) FAMILIA (obstructive sleep apnea) Intracranial hemorrhage Surgical History History of tubal ligation History of section H/O craniotomy H/O sinus surgery Family History Father HTN (hypertension) Heart disease Diabetes Mother HTN (hypertension) Diabetes Maternal Uncle Colon cancer Paternal Aunt Colon cancer Paternal Grandfather Prostate cancer Maternal Uncle Stomach cancer Social History Alcohol intake: never Patient Tobacco Use Status: Never used Tobacco Review of Systems Const Denies chills, Denies fatigue, Denies fever(s), Denies frequent falls, Denies weakness, Denies weight gain and Denies weight loss ENT Denies dizziness Card Denies chest pain, Denies leg edema, Denies lightheadedness, Denies palpitations, Denies dyspnea, Denies dyspnea on exertion, Denies orthopnea and Denies other (loss of consciousness) Resp Denies cough, Denies dyspnea and Denies dyspnea on exertion GI Denies hematochezia and Denies change in stool character Musc Denies abnormal gait, Denies muscle weakness, Denies numbness, Denies radiating pain into limb and Denies tingling Neuro Denies abnormal gait, Denies dizziness, Denies frequent falls, Denies numbness, Denies tingling and Denies weakness Endo Denies fatigue and Denies palpitations Physical Exam Vital Signs: Last Vital Signs Pulse 74 08/07/24 13:52 BP 120/76 08/07/24 13:52 BMI result Body Mass Index 34.1 Const General: cooperative, comfortable, no acute distress, alert, awake and well groomed Nutritional Appearance: overweight Orientation/consciousness: patient oriented x3 Limitations: no limitations Neck Neck: Yes trachea midline, Yes supple and Yes no JVD Resp Effort & Inspection: normal respiratory effort Auscultation: clear to auscultation bilaterally Cardio Jugular venous distension: no JVD Palpation: normal PMI Rate: regular rate Rhythm: regular rhythm Heart sounds: S1 normal heart sound present and S2 normal heart sound present GI Auscultation: normal bowel sounds Skin General skin exam: no rashes or lesions noted Neuro General: patient oriented x3 and no focal motor deficits Extrem General: Yes no clubbing, cyanosis or edema Psych Appearance: grossly normal Office Procedures EKG Details: EKG shows normal sinus rhythm nonspecific T-wave changes [id number], Complete Assessment & Plan Assessment & Plan (1) Paroxysmal atrial fibrillation: Code(s): I48.0 - Paroxysmal atrial fibrillation Category: Medical Plan: Highly symptomatic paroxysmal atrial fibrillation doing extremely well from cardiac perspective. At this point time continue rhythm control approach. Has done well with flecainide therapy. Continue concomitant labetalol therapy. Status post Watchman device due to intracranial hemorrhage. Currently on aspirin therapy. Follow-up. EKG in 6 months time due to flecainide therapy. She understands agrees. Continue CPAP therapy. Encouraged to continue to participate in regular physical activity and weight loss program. (2) HTN (hypertension): Code(s): I10 - Essential (primary) hypertension Category: Medical Plan: Hypertension which is currently well optimized on current therapy with labetalol and hydrochlorothiazide. Importance of good blood pressure control was discussed. Continue the current therapy. Low-salt diet was discussed advised to monitor blood pressure at home maintain a log. Goal blood pressure less than 130/84. Continue CPAP therapy. Follow up in the clinic in 6 months for EKG in 1 year with me. Thank you for allowing me to partake in her care Coding Level of Care Code Est Pt Level 4 (62481) Complex EM visit Add On G2211 Diagnoses Paroxysmal atrial fibrillation I48.0 HTN (hypertension) I10 CPT Codes EKG - CPT: 35366-[id number], Complete ([id number])
--- OUTSIDE RECORDS SUMMARY | 2024-08-07 14:17 | XMS_ITS ---
Author Organization [employer] Address [address] [place] [address] [address] [place] [address] Care Team Providers Care Dinkey Operator Slate Name Role Phone Elana Luu MD Primary Care Provide r CHW Complex Status:Enrolled (Active) Start date:06/09/2024 Enrollment date:06/13/2024 Enrollment reason:Referred by provider Overview Sdoh Referral- SDOH positive patient seeking assistance with food insecurity and transportation Case Team Name Relationship Phone Nai Maynard(Responsible Staff) Continued Care and Services Coordination
== END 2024-08-07 14:12 | disposition home or self-care (01) ==
LOC: HO.HCS 12:41
PROVIDERS: PCP Internal Medicine; Visit Provider Internal Medicine Cardiovascular Disease
DX: I48.0 Paroxysmal atrial fibrillation (principal); I10 Essential (primary) hypertension
CPT/HCPCS: 93010; 99214

== ENCOUNTER → 2024-08-07 12:40 | Outpatient (BNVA) | payer MEDICAID, SELFPAY | PROVIDERS: PCP Internal Medicine; Visit Provider Internal Medicine Cardiovascular Disease | DX: I48.0 Paroxysmal atrial fibrillation (principal); I10 Essential (primary) hypertension; Z98.890 Other specified postprocedural states | CPT/HCPCS: 93005; 99212 ==

== ENCOUNTER 2024-09-04 08:24 | Outpatient (REF) | payer MEDICAID, SELFPAY ==
--- OUTSIDE RECORDS SUMMARY | 2024-09-04 08:34 | XMS_ITS | Encounter Summary ---
Author Organization [facility], Address [address] [place] [address] Phone Care Team Providers Care Pathology Tech Name Role Phone Elana Luu MD Primary Care Provide r Encounter Details Date Type Department Care Team (Late Contact Info) Description 07/28/2024 Documentation Only [facility] [address] [place] [address] Lisa Mandel [place] [address] [place] [address] Social History Tobacco Use Types Packs/Day Years Used Date Smoking Tobacco: Never Alcohol Use Standard Drinks/Week Comments No 0 (1 standard drink = 0.6 oz pure alcohol) Alcoholic Drinks/day: Occasional social drink Comments Unknown Sex and Gender Information Value Date Recorded Sex Assigned at Not on file Legal Sex Female 4:33 PM EST Gender Identity Not on file Sexual Orientation Not on file documented as of this encounter Plan of Treatment Upcoming Encounters Date Type Department Care Team (Late st Contact Info) Description 01/16/2025 1:30 PM EST Office Visit [facility] [address] [place] [address] Kevin Fragoso MD [address] [place] [address] documented as of this encounter Visit Diagnoses Not on filedocumented in this encounter Care Teams Pathology Tech Relationship Specialty Start Date End Date Elana Luu MD [address] [place] [address], [place] [address] PCP - General Internal Medicine 07/25/24 documented as of this encounter
--- OUTSIDE RECORDS SUMMARY | 2024-09-04 08:34 | XMS_ITS ---
Author Organization [employer] Address [address] [place] [address] [address] [place] [address] Care Team Providers Care Director Of Science Name Role Phone Elana Luu MD Primary Care Provide r CHW Complex Status:Enrolled (Active) Start date:06/09/2024 Enrollment date:06/13/2024 Enrollment reason:Referred by provider Overview Sdoh Referral- SDOH positive patient seeking assistance with food insecurity and transportation Case Team Name Relationship Phone Nai Maynard(Responsible Staff) Continued Care and Services Coordination
[2024-09-04 11:22] LABS: MANUAL DIFF FLAG NO
[2024-09-04 11:33] LABS: Hematocrit 36.7 % (37.0-47.0); Hemoglobin 12.0 g/dl (12.0-16.0); Imm Gran Abs Auto 0.02 X10*3/uL (0.00-0.03); Imm Gran Pct Auto 0.3 % (0.0-0.4); Lymphocytes Absolute Auto 1.6 X10*3/uL (1.2-4.9); Mean Corpuscular HGB Conc 32.7 g/dl (31.0-35.0); Mean Corpuscular Hemoglobin 30.2 pg (27.0-33.0); Mean Corpuscular Volume 92.4 fL (80.0-98.0); NRBC Abs Auto 0.000 X10*3/uL (0.0-0.012); NRBC Pct Auto 0.0 /100WBC (0.0-0.2); Platelet Count 225 X10*3/uL (160-400); Red Blood Count 3.97 X10*6/uL (4.20-5.50); White Blood Count 5.8 X10*3/uL (4.8-10.8)
[2024-09-04 11:49] LABS: Hemoglobin A1C 154.7521 umol/L; Total Hemoglobin (HGBA1C) 3222.6799 umol/L
[2024-09-04 11:50] LABS: Hemoglobin A1C 151.5626 umol/L; Total Hemoglobin (HGBA1C) 3133.4763 umol/L
[2024-09-04 14:06] LABS: Anion Gap 11 (12-20)
[2024-09-04 14:11] LABS: Alanine Aminotransferase 103 U/L (0-31); Albumin Level 4.4 g/dL (3.5-5.0); Alkaline Phosphatase 68 U/L (39-117); Aspartate Amino Transferase 68 U/L (5-31); Blood Urea Nitrogen 17 mg/dL (9-16); Calcium 9.3 mg/dL (8.4-10.2); Carbon Dioxide 30 mmol/L (22-29); Chloride 107 mmol/L (96-108); Cholesterol 163 mg/dL (<200); Estimated Glomerular Filt Rate > 60; HDL Cholesterol 70 mg/dL (>40); Potassium 4.1 mmol/L (3.3-5.1); Sodium 144 mmol/L (135-145); Total Protein 6.8 g/dL (6.5-8.0); Triglycerides 65 mg/dL (<150)
== END 2024-09-04 08:25 | disposition home or self-care (01) ==
LOC: HO.HHCL 08:24
PROVIDERS: PCP Internal Medicine; Visit Provider Internal Medicine Nephrology
DX: R73.03 Prediabetes (principal)
CPT/HCPCS: 36415; 80048; 80061; 80076; 83036; 84443; 85025

== ENCOUNTER 2024-09-08 10:04 | Day surgery (SDC) | payer MEDICAID, SELFPAY ==
[2024-09-06 11:19] VITALS: BMI 34.1
--- NOTE | 2024-09-07 09:46 | HO.ANESPROP2 ---
Documented by User: Marylin Rico NP 09/07/24 09:52 HPI - Anesthesia Eval Consult details Narrative: 54yo F for Colonoscopy Follows [facility] for Afib - watchman and asa d/t hx of IC hemmorhage. Stable at 07/2024 office visit with 1 year routine f/u [facility] Active Problems Active Problems: All Active Problems Neck pain on right side (Acute) Right shoulder pain (Acute) Presence of Watchman left atrial appendage closure device (Acute) Chronic idiopathic constipation (Acute) Pre-op examination (Acute) Alopecia (Acute) Depression with anxiety (Acute) IgA nephropathy (Acute) Abnormal stress ECG (Acute) Paroxysmal atrial fibrillation (Acute) HTN (hypertension) (Acute) FAMILIA (obstructive sleep apnea) (Acute) Past Medical History Medical History Interatrial cardiac shunt History of cardioversion Pre-diabetes History of subdural hematoma High cholesterol Presence of Watchman left atrial appendage closure device Paroxysmal atrial fibrillation HTN (hypertension) FAMILIA (obstructive sleep apnea) Intracranial hemorrhage Family History Family History Father HTN (hypertension) Heart disease Diabetes Mother HTN (hypertension) Diabetes Maternal Uncle Colon cancer Paternal Aunt Colon cancer Paternal Grandfather Prostate cancer Maternal Uncle Stomach cancer Surgical History Surgical History History of tubal ligation History of section H/O craniotomy H/O sinus surgery Social History Social History Are you a primary primary care nurse practitioner to a significant other at home: No Do you presently have visiting nurse or other home services: No Alcohol intake: never Patient Tobacco Use Status: Never used Tobacco Meds Allergies Allergy/AdvReac Type Severity Reaction Status Date / Time lisinopril (LISINOPRIL) Allergy Intermediate Palpitation Verified 09/08/24 10:58 s NSAIDS Allergy Intermediate Hypertensio Uncoded 09/08/24 10:58 n Home Medications ?Medication ?Instructions ?Recorded ?Confirmed ?Last Taken ?Type simvastatin 20 mg tablet 20 mg PO BEDTIME 01/17/20 08/07/24 Unknown History sumatriptan succinate 25 mg tablet 25 mg PO Q2-4H PRN Migraine 01/17/20 08/07/24 Unknown History Headache cholecalciferol (vitamin D3) 25 25 mcg PO DAILY 07/09/20 09/08/24 Unknown History mcg (1,000 unit) capsule hydrochlorothiazide 12.5 mg tablet 12.5 mg PO DAILY 07/09/20 09/08/24 Unknown History labetalol 100 mg tablet 100 mg PO BID 07/09/20 09/08/24 09/08/24 History albuterol sulfate 90 mcg/actuation 0 mcg PO Q4H PRN Bronchospasm 06/24/21 09/08/24 Unknown History aerosol inhaler (ProAir HFA) azelastine 137 mcg (0.1 %) nasal 1 spray intranasal BID 01/01/23 09/08/24 Unknown History spray blood sugar diagnostic (FreeStyle #10 ea 01/01/23 07/01/23 Unknown History Lite Strips) valsartan 160 mg tablet 160 mg PO .at bedtime 01/01/23 08/07/24 Unknown History venlafaxine 150 mg 150 mg PO QAM 01/01/23 08/07/24 Unknown History capsule,extended release 24 hr diclofenac sodium 1 % topical gel g topical QID 03/10/24 08/07/24 Unknown History hydroxyzine pamoate 25 mg capsule 25 mg PO anxiety 03/10/24 08/07/24 Unknown History metformin 500 mg tablet 500 mg PO BID 03/10/24 08/07/24 Unknown History empagliflozin 10 mg tablet 10 mg PO DAILY 09/06/24 09/06/24 Unknown History (Jardiance) Exam Height,Weight and Vital Signs: Height 5 ft 5 in Weight 92.986 kg Pertinent Lab Results Pertinent Lab Results: Laboratory Tests 09/04/24 08:35 WBC 5.8 Hgb 12.0 Hct 36.7 L Plt Count 225 Sodium 144 Potassium 4.1 Chloride 107 Carbon Dioxide 30 H BUN 17 H Creatinine 0.67 Hemoglobin A1c % 6.6 H Narrative Narrative: EKG 07/2024 Details: EKG shows normal sinus rhythm nonspecific T-wave changes ECHO 2023 Conclusions: - Normal left ventricular size and systolic function. The visually estimated ejection fraction is between 55-60%. Diastolic function is normal for age. There is mild septal asymmetric hypertrophy. - Normal right ventricular cavity size and systolic function. Assessment and Plan Assessment Anesthesia Assessment: Chart Reviewed Documented by User: Zack Thompson MD 09/08/24 12:30 [facility] Past Medical History Medical History Interatrial cardiac shunt History of cardioversion Pre-diabetes History of subdural hematoma High cholesterol Presence of Watchman left atrial appendage closure device Paroxysmal atrial fibrillation HTN (hypertension) FAMILIA (obstructive sleep apnea) Intracranial hemorrhage Functional capacity: independent ambulation Patient : No Family History Family History Father HTN (hypertension) Heart disease Diabetes Mother HTN (hypertension) Diabetes Maternal Uncle Colon cancer Paternal Aunt Colon cancer Paternal Grandfather Prostate cancer Maternal Uncle Stomach cancer Family history of problems with anesthesia: No Surgical History Surgical History History of tubal ligation History of section H/O craniotomy H/O sinus surgery History of Problems with Anesthesia: No Social History Social History Are you a primary primary care nurse practitioner to a significant other at home: No Do you presently have visiting nurse or other home services: No Alcohol intake: never Patient Tobacco Use Status: Never used Tobacco Meds Allergies Allergy/AdvReac Type Severity Reaction Status Date / Time lisinopril (LISINOPRIL) Allergy Intermediate Palpitation Verified 09/08/24 10:58 s NSAIDS Allergy Intermediate Hypertensio Uncoded 09/08/24 10:58 n Home Medications ?Medication ?Instructions ?Recorded ?Confirmed ?Last Taken ?Type simvastatin 20 mg tablet 20 mg PO BEDTIME 01/17/20 08/07/24 Unknown History sumatriptan succinate 25 mg tablet 25 mg PO Q2-4H PRN Migraine 01/17/20 08/07/24 Unknown History Headache cholecalciferol (vitamin D3) 25 25 mcg PO DAILY 07/09/20 09/08/24 Unknown History mcg (1,000 unit) capsule hydrochlorothiazide 12.5 mg tablet 12.5 mg PO DAILY 07/09/20 09/08/24 Unknown History labetalol 100 mg tablet 100 mg PO BID 07/09/20 09/08/24 09/08/24 History albuterol sulfate 90 mcg/actuation 0 mcg PO Q4H PRN Bronchospasm 06/24/21 09/08/24 Unknown History aerosol inhaler (ProAir HFA) azelastine 137 mcg (0.1 %) nasal 1 spray intranasal BID 01/01/23 09/08/24 Unknown History spray blood sugar diagnostic (FreeStyle #10 ea 01/01/23 07/01/23 Unknown History Lite Strips) valsartan 160 mg tablet 160 mg PO .at bedtime 01/01/23 08/07/24 Unknown History venlafaxine 150 mg 150 mg PO QAM 01/01/23 08/07/24 Unknown History capsule,extended release 24 hr diclofenac sodium 1 % topical gel g topical QID 03/10/24 08/07/24 Unknown History hydroxyzine pamoate 25 mg capsule 25 mg PO anxiety 03/10/24 08/07/24 Unknown History metformin 500 mg tablet 500 mg PO BID 03/10/24 08/07/24 Unknown History empagliflozin 10 mg tablet 10 mg PO DAILY 09/06/24 09/06/24 Unknown History (Jardiance) Exam Exam Date and Time: 09/08/2024 Airway Mallampati Class: II TM Dist: >3cm Neck ROM: Full Denture: Upper Partial: Upper Loose/Missing/Broken Teeth: No Heart: rrr Lungs: cta Other: normal Assessment and Plan Final Anesthetic Review Family History of Problems with Anesthesia: No History of Problems with Anesthesia: No ASA Class: II and III Final Preanesthetic Review: No Changes in Pt Med Stat, Meds/Allgs Chart Reviewed, Consent Obtained/Reviewed and Anes Risks/Benef Reviewed Patient Risk: Intermediate Procedure Risk: Low Anesthetic Plan Anesthetic Plan: MAC: Disposition: Standard PACU
[2024-09-08 10:32] VITALS: BMI 35.8
[2024-09-08] MEDS: Lactated Ringers 1,000 ML 100 ML IVCONT (10:44)
[2024-09-08 10:55] VITALS: BP 146/82; PULSE 79; RESP 18; TEMP 36.7; O2SAT 99
--- NOTE | 2024-09-08 11:30 | MHC.SHP ---
Pre-Procedural Eval Section A - 24 Hr Update-Section A only Date of Service: 09/08/24 The patient is an INPATIENT: No The patient has been examined within 24 hours of the surgical procedure. The History & Physical has been completed within 30 days and I have reviewed it.: No Section B - Complete if H&P > 30 days Chief Complaint: Colon cancer screening, rectal bleeding Relevant Family History (Specify if Yes): Yes Relevant Social History: None Present Medications: see Short Stay Collaborative assessment Medical History: Significant History (Interatrial cardiac shunt History of cardioversion Pre-diabetes History of subdural hematoma High cholesterol Presence of Watchman left atrial appendage closure device Paroxysmal atrial fibrillation HTN (hypertension) FAMILIA (obstructive sleep apnea) Intracranial hemorrhage) History of Previous Operations: Relevant previous surgery/procedure and date(s) (History of tubal ligation History of section H/O craniotomy H/O sinus surgery) Allergies: Allergies Allergy/AdvReac Type Severity Reaction Status Date / Time lisinopril (LISINOPRIL) Allergy Intermediate Palpitation Verified 09/08/24 10:58 s NSAIDS Allergy Intermediate Hypertensio Uncoded 09/08/24 10:58 n Review of Systems Sugical H&P ROS: Negative: Constitution, Cardiovascular and Respiratory and Yes, Specify: Gastrointestinal (constipation) Exam Surgical H&P Exam: Normal: Heart, Normal: Lungs, Normal: Extremities and Normal: Abdomen Plan Diagnosis/Plan: Unchanged I have reviewed the history and physical and performed a pertinent physical examination on my patient. No changes have occurred unless specified. Time Spent With Patient Time: Total time managing care of this patient today ____ minutes.
[2024-09-08 11:38] LABS: Glucose, Whole Blood 106 mg/dL (60-115)
[2024-09-08 13:24] VITALS: BP 91/58; PULSE 89; RESP 16; TEMP 37.1; O2SAT 95
--- NOTE | 2024-09-08 13:25 | HO.OPN-COLON ---
Colonoscopy Operative Note Operative Note Date of Service: 09/08/24 Narrative: COLONOSCOPY TILL CECUM WITH BIOPSIES Pre-op diagnosis: Colon cancer screening, chronic constipation, rectal bleeding. Post-op diagnosis:? Diverticulosis, hemorrhoids Endoscopist:? Amanda Villavicencio MD Anesthesia:?MAC Consent: Indications for the procedure and potential complications of bleeding, perforation, reaction to medications and missed diagnosis were discussed with the patient and informed consent was obtained. Instrument: Olympus PCF H 190 L variable stiffness pediatric colonoscope Monitoring: Vital signs and clinical assessment, intermittent blood pressure monitoring, continuous EKG monitoring, Pulse oximetry and Carbon Dioxide monitoring were done throughout the procedure. Please see anesthesia flowsheet. Colon withdrawl time was 20 minutes. Procedure: The patient was placed in the left lateral decubitis position and pre-procedure medications were administered. After a digital rectal examination of the ano-rectum, the video colonoscope was inserted into the rectum and advanced through the colon to the cecum. The colonoscope was slowly withdrawn in a retrograde panoramic fashion and the colon mucosa was carefully examined including a retroflexed view of the rectum. Findings and interventions are described below. Procedure Difficulty: Colon was long and there was some loop formation Findings: Terminal Ileum: Not evaluated Cecum: Normal. Prominent ICV - biopsies were obtained Ascending Colon: Normal Transverse Colon: Normal Descending Colon: Normal Sigmoid Colon: Moderate diverticulosis Rectum: Normal Ano-rectum: Moderate internal hemorrhoids Colon preparation: Good after copious irrigation. [place] Bowel Preparation Scale Right colon; 2 Transverse colon: 2 Left colon; 2 (0 = Unprepared colon segment with mucosa not seen due to solid stool that cannot be cleared. 1 = Portion of mucosa of the colon segment seen, but other areas of the colon segment not well seen due to staining, residual stool and/or opaque liquid. 2 = Minor amount of residual staining, small fragments of stool and/or opaque liquid, but mucosa of colon segment seen well. 3 = Entire mucosa of colon segment seen well with no residual staining, small fragments of stool or opaque liquid) Impression and Post Procedure Diagnosis: Colonoscopy Findings: No polyps were detected Prominent ICV - biopsies were obtained Moderate diverticulosis seen in the sigmoid colon Moderate hemorrhoids on retroflexed exam - likely source of rectal bleeding. Plan: Pt to schedule a FU appointment with Sabine Denise NP for FU of constipation Repeat Colonoscopy in 10 year if biopsies are normal. Above findings were reviewed with the patient and relevant handouts were given and the discharge area. BIOPSIES SHOWED: leocecal valve, biopsy: Ileocolonic mucosa within normal limits Letter sent with the patient with biopsy results. Patient was placed on the recall list for repeat colonoscopy in 10 years.
[2024-09-08 13:34] VITALS: BP 110/66; PULSE 83; RESP 18; O2SAT 95
[2024-09-08 13:45] VITALS: BP 117/71; PULSE 80; RESP 18; TEMP 37.1; O2SAT 95
== END 2024-09-08 15:02 | disposition home or self-care (01) ==
PROVIDERS: PCP Internal Medicine; Visit Provider Internal Medicine Gastroenterology
PROC: 0DJD8ZZ Inspection of Lower Intestinal Tract, Via Natural or Artificial Opening Endoscopic (ICD-10-PCS; CPT 45378; principal; 2024-09-08 12:00)
DX: Z12.11 Encounter for screening for malignant neoplasm of colon (principal); K56.2 Volvulus; K57.30 Diverticulosis of large intestine without perforation or abscess without bleeding; K64.8 Other hemorrhoids; E11.9 Type 2 diabetes mellitus without complications; I10 Essential (primary) hypertension; E78.5 Hyperlipidemia, unspecified; G47.33 Obstructive sleep apnea (adult) (pediatric); I48.0 Paroxysmal atrial fibrillation; Z79.02 Long term (current) use of antithrombotics/antiplatelets; Z79.84 Long term (current) use of oral hypoglycemic drugs; Z79.82 Long term (current) use of aspirin; Z79.899 Other long term (current) drug therapy
CPT/HCPCS: 45380; 82947; 88305; J2003; J2704; J3010

== ENCOUNTER → 2024-09-08 10:04 | Outpatient (BNV) | payer MEDICAID, SELFPAY | PROVIDERS: PCP Internal Medicine; Visit Provider Internal Medicine Gastroenterology | DX: Z12.11 Encounter for screening for malignant neoplasm of colon (principal); K59.04 Chronic idiopathic constipation; K62.5 Hemorrhage of anus and rectum; K91.858 Other complications of intestinal pouch; K57.30 Diverticulosis of large intestine without perforation or abscess without bleeding; K64.8 Other hemorrhoids | CPT/HCPCS: 45380 ==

== ENCOUNTER 2024-09-22 08:49 | Outpatient (AMB) | payer MEDICAID, SELFPAY ==
--- NOTE | 2024-09-22 08:50 | MHC.OFFVIS ---
Vital Signs 09/22/24 08:51 Height 5 ft 5 in Weight 212 lb 1.355 oz BMI 35.3 BP 106/66 Blood Pressure Location Lt brachial Position Sitting Pulse 76 Intake Visit Reasons: [place]; Saud Intake Note: Elana presents to in office follow up s/p colonoscopy. CC: Patient reports doing well and denies having any new GI symptoms. Tapper Operator Required: No Accompanied by: Self / Same As Patient Allergies lisinopril (LISINOPRIL) Allergy (Intermediate, Verified 09/22/24 08:57) Palpitations NSAIDS Allergy (Intermediate, Uncoded 09/08/24 10:58) Hypertension HPI HPI [place]; [place]aud: Details: Assessment & Plan (1) Pre-op examination: Code(s): Z01.818 - Encounter for other preprocedural examination (2) FAMILIA (obstructive sleep apnea): Code(s): G47.33 - Obstructive sleep apnea (adult) (pediatric) (3) Paroxysmal atrial fibrillation: Code(s): I48.0 - Paroxysmal atrial fibrillation (4) IgA nephropathy: Code(s): N02.8 - Recurrent and persistent hematuria with other morphologic changes (5) Chronic idiopathic constipation: Code(s): K59.04 - Chronic idiopathic constipation (6) Presence of Watchman left atrial appendage closure device: Code(s): Z95.818 - Presence of other cardiac implants and grafts Plan [place] #Asif and Jaison This is her first colonoscopy. She suffers CIC badly, she drinks prune juice daily (limited r/t pre diabetes) but she will only move her bowels every 5 days and her hemorrhoidal then manifest externally and are ?bad.? She can not use stimulant laxatives r/t her afib and has failed miralax, lactulose fiber etc. No upper GI problems. There are no prior problems with anesthesia or sedation. She has afib and a WATCHMAN device, FAMILIA and Asthma that is well controlled. No ID problems. Her brother and her paternal uncle had CRC and a maternal uncle had CRC as well. Orders: Orders Colonoscopy - GI Use Only Today Z01.818 - Encounter for other preprocedural examination Medications: New peg 3350-electrolytes 236-22.74-6.74 -5.86 gram (Golytely) until fecal effluent is clear; do not exceed a total volume of 2,000 mL 240 mL PO Q10M 1 day 4,000 mL 0RF Z12.11 - Encounter for screening for malignant neoplasm of colon bisacodyl (Dulcolax (bisacodyl)) 10 mg (2 x 5 mg) PO BEDTIME 2 days 4 tabs 0RF linaclotide (Linzess) 145 mcg PO QAM 30 caps 3RF K59.04 - Chronic idiopathic constipation COLONOSCOPY Findings: Terminal Ileum: Not evaluated Cecum: Normal. Prominent ICV - biopsies were obtained Ascending Colon: Normal Transverse Colon: Normal Descending Colon: Normal Sigmoid Colon: Moderate diverticulosis Rectum: Normal Ano-rectum: Moderate internal hemorrhoids Impression and Post Procedure Diagnosis: Colonoscopy Findings: No polyps were detected Prominent ICV - biopsies were obtained Moderate diverticulosis seen in the sigmoid colon Moderate hemorrhoids on retroflexed exam - likely source of rectal bleeding. Plan: Pt to schedule a FU appointment with Sabine Denise NP for FU of constipation Repeat Colonoscopy in 10 year if biopsies are normal. Above findings were reviewed with the patient and relevant handouts were given and the discharge area. BIOPSIES SHOWED: leocecal valve, biopsy: Ileocolonic mucosa within normal limits Letter sent with the patient with biopsy results. Patient was placed on the recall list for repeat colonoscopy in 10 years. TODAY'S VISIT CONGOLESE #Jaison Live She has CIC and has always used prune juice with good results, however she is fearful because it is very sweet she is a diabetic. While I do not think this is bad, she may want to try a fiber supplement like Benefiber or Citrucel as this will not raise her blood sugar. If she ever can not control it she is agreeable to coming back and see me. She is agreeable to a 5 year follow-up. The procedure was well tolerated. The results were explained and the patient is agreeable to the follow-up interval as stated. The bowel pattern has returned to normal. Education was provided to tell any 1st degree relatives about their findings to be sure that they are screened by age 45. Educated that they will be put on a recall list when it is time for their repeat scope but should they move out of state or away from the hospital they will need to remember along with their primary to repeat the procedure in a timely fashion to avoid any adverse complications. [facility] Medical History Interatrial cardiac shunt History of cardioversion Pre-diabetes History of subdural hematoma High cholesterol Presence of Watchman left atrial appendage closure device Paroxysmal atrial fibrillation HTN (hypertension) FAMILIA (obstructive sleep apnea) Intracranial hemorrhage Surgical History History of tubal ligation History of section H/O craniotomy H/O sinus surgery Family History Father HTN (hypertension) Heart disease Diabetes Mother HTN (hypertension) Diabetes Maternal Uncle Colon cancer Paternal Aunt Colon cancer Paternal Grandfather Prostate cancer Maternal Uncle Stomach cancer Social History Are you a primary medicare compliance auditor to a significant other at home: No Do you presently have visiting nurse or other home services: No Alcohol intake: never Patient Tobacco Use Status: Never used Tobacco Review of Systems Const Denies fatigue, Denies fever(s), Denies night sweats, Denies poor appetite and Denies weight loss ENT Reports Normal hearing present, Denies dental pain, Denies dysphagia, Denies hearing loss, Denies mouth pain, Denies odynophagia, Denies throat swelling, Denies tongue swelling and Reports other (Dentition adequate) Card Reports no additional complaints Resp Reports no additional complaints GI Details: Denies abdominal pain, Denies melena, Denies bloating, Denies hematochezia, Reports constipation, Denies GI cramping, Denies dysphagia, Denies excessive flatus, Denies early satiety, Denies heartburn, Denies diarrhea, Denies nausea, Denies odynophagia, Denies vomiting and Denies hematemesis Skin/Breast Denies pruritus, Denies lesions, Denies rash and Denies jaundice Neuro Reports Normal hearing present and Denies Abnormal speech present Endo Denies fatigue Aller/Immun Denies throat swelling and Denies tongue swelling Physical Exam Vital Signs: Last Vital Signs Pulse 76 09/22/24 08:51 BP 106/66 09/22/24 08:51 BMI result Body Mass Index 35.3 Const General: cooperative, no acute distress, well developed and well groomed Nutritional Appearance: well nourished and obese Orientation/consciousness: oriented to person, oriented to place and oriented to time Limitations: language barrier HEENT Head: Yes normocephalic and Yes atraumatic Eyes General: appearance normal, both eyes and all related structures Pupils: Equal, round and reactive pupils present Neck Neck: Yes normal visual inspection and Yes no lymphadenopathy Thyroid: Thyroid normal Resp Effort & Inspection: normal respiratory effort and able to speak in complete sentences Auscultation: clear to auscultation bilaterally Cardio Rate: regular rate Rhythm: regular rhythm Heart sounds: Normal, physiologic split S2 sound present Peripheral pulses: radial pulses present and posterior tibial pulses present GI Inspection: No distended, No Abdominal panniculus present and Yes obesity Palpation (GI): Soft to palpation, nontender, no guarding, not rigid and No hepatosplenomegaly present Percussion: Yes normal to percussion Auscultation: normal bowel sounds Rectal Exam - Female: deferred Skin General skin exam: no rashes or lesions noted, turgor normal, skin not dry, no jaundice, No spider nevi and no striae Rashes: no rashes Nails: normal Neuro General: oriented to person, oriented to place and oriented to time Cranial nerves: Yes Equal, round and reactive pupils present and Yes Normal hearing present Speech: No Abnormal speech present Extrem General: Yes normal to inspection, No clubbing, No cyanosis and No edema Psych Appearance: grossly normal and well kempt Mental Status: mental status grossly normal Speech and movement: Normal speech and movement present Affect: normal affect Attitude: cooperative Thought process: Normal thought process present and not confabulating Thought content: Normal thought content present Insight: Good insight present (Psych) Judgement: Good judgement present (Psych) Assessment & Plan Assessment & Plan (1) Chronic idiopathic constipation: Code(s): K59.04 - Chronic idiopathic constipation Category: Medical (2) Family history of colon cancer: Comment: brother and uncle Code(s): Z80.0 - Family history of malignant neoplasm of digestive organs Category: Medical Plan [place] #Jaison Live She has CIC and has always used prune juice with good results, however she is fearful because it is very sweet she is a diabetic. While I do not think this is bad, she may want to try a fiber supplement like Benefiber or Citrucel as this will not raise her blood sugar. If she ever can not control it she is agreeable to coming back and see me. She is agreeable to a 5 year follow-up. The procedure was well tolerated. The results were explained and the patient is agreeable to the follow-up interval as stated. The bowel pattern has returned to normal. Education was provided to tell any 1st degree relatives about their findings to be sure that they are screened by age 45. Educated that they will be put on a recall list when it is time for their repeat scope but should they move out of state or away from the hospital they will need to remember along with their primary to repeat the procedure in a timely fashion to avoid any adverse complications. Coding Level of Care Code Est Pt Level 3 (40899) Diagnoses Chronic idiopathic constipation K59.04 Family history of colon cancer Z80.0
[2024-09-22 08:51] VITALS: BP 106/66; PULSE 76; BMI 35.3
--- OUTSIDE RECORDS SUMMARY | 2024-09-22 09:04 | XMS_ITS | Encounter Summary ---
Author Organization [facility], Address [address] [place] [address] Phone Care Team Providers Care Guard Driver Name Role Phone Elana Luu MD Primary Care Provide r Encounter Details Date Type Department Care Team (Late Contact Info) Description 06/19/2021 Documentation Only [facility] [address] [place] [address] Theo Levy MD [address] [place] [address] [place] [address] Social History Tobacco Use Types Packs/Day Years [...] Visit [facility] [address] [place] [address] Kevin Fragoso MD [address] [facility] [address] [place] [address] documented as of this encounter Visit Diagnoses Not on filedocumented in this encounter Care Teams Guard Driver Relationship Specialty Start Date End Date Elana Luu MD [address] [place] [id number] PCP - General Internal Medicine 07/25/24 documented as of this encounter
== END 2024-09-22 09:16 | disposition home or self-care (01) ==
LOC: HO.HGI 08:50
PROVIDERS: PCP Internal Medicine; Visit Provider Nurse Practitioner
DX: K59.04 Chronic idiopathic constipation (principal); Z80.0 Family history of malignant neoplasm of digestive organs
CPT/HCPCS: 99213

== ENCOUNTER → 2024-09-22 08:49 | Outpatient (BNVA) | payer MEDICAID, SELFPAY | PROVIDERS: PCP Internal Medicine; Visit Provider Nurse Practitioner | DX: Z80.0 Family history of malignant neoplasm of digestive organs (principal); K59.04 Chronic idiopathic constipation; Z95.818 Presence of other cardiac implants and grafts | CPT/HCPCS: 99212 ==